=== PATIENT | female | born 1940 | race African-American/Black ===

== ENCOUNTER 2018-10-08 12:30 | Inpatient (IN) ==
--- NOTE | 2018-10-08 17:34 | EKG Report ---
Test Performed on : 10/08/2018 5:11:29 PM Test Reason : PAT Blood Pressure : / mmHG Vent. Rate : 058 BPM Atrial Rate : 058 BPM P-R Int : 158 ms QRS Dur : 104 ms QT Int : 448 ms P-R-T Axes : 062 -09 042 degrees QTc Int : 439 ms Sinus bradycardia. with premature atrial complexes. Moderate voltage criteria for LVH, may be normal variant Borderline ECG When compared with ECG of 03-OCT-2018 06:30, (Unconfirmed) Sinus rhythm. has replaced Atrial fibrillation. Vent. rate has decreased BY 58 BPM Confirmed by Minesh TERRAZAS, Jaylen Weir ([id number]) on 10/10/2018 10:53:06 AM
[2018-10-08 17:53] LABS: URINE SOURCE CLEAN CATCH
[2018-10-08 17:57] LABS: BASO# 0.04 X1000 (0.0-0.2); BASO% 0.8 % (0.0-0.8); EOS# 0.15 X1000 (0.0-0.7); EOS% 2.9 % (0.0-10.0); HEMATOCRIT 30.2 % (37.0-47.0); HEMOGLOBIN 9.7 g/dL (12.0-16.0); LYMPH# 1.55 X1000 (1.2-3.4); LYMPH% 29.6 % (20.5-51.1); MCH 27.1 PG (27-31); MCHC 32.1 g/dL (33-37); MCV 84.4 FL (81-99); MONO# 0.42 X1000 (0.11-0.59); NEUT# 3.08 X1000 (1.4-6.5); NEUT% 58.7 % (42.2-75.2); PLT 252 X1000 (130-400); RBC 3.58 XMIL (4.2-5.4); WBC 5.24 X1000 (4.8-10.8)
[2018-10-08 18:04] LABS: BILIRUBIN URINE NEGATIVE (NEGATIVE); BLOOD URINE NEGATIVE (NEGATIVE); COLOR YELLOW; GLUCOSE URINE NEGATIVE (NEGATIVE); KETONE URINE NEGATIVE (NEGATIVE); LEUKOCYTES URINE LARGE (NEGATIVE); NITRITE URINE NEGATIVE (NEGATIVE); PROTEIN URINE NEGATIVE (NEGATIVE); SP GRAVITY URINE 1.009; TURBIDITY URINE CLEAR (CLEAR); UROBILINOGEN URINE NORMAL (NORMAL)
[2018-10-08 18:05] LABS: UR EPITHELIAL CELLS <10 /HPF (<10); URINE BACTERIA NEGATIVE /HPF; URINE RBC <10 /HPF (<10); URINE WBC 20-40 /HPF (<10)
[2018-10-08 18:06] LABS: INR 1.04; PROTIME 14.5 Seconds (11.0-16.0)
[2018-10-08 18:07] LABS: PTT 29.3 Seconds (22.3-41.8)
[2018-10-08 18:14] LABS: CALCIUM 9.3 mg/dL (8.8-10.2); CREATININE 1.4 mg/dL (0.5-0.9); POTASSIUM 3.4 mmol/L (3.5-5.1)
[2018-10-15] MEDS ORDERED: PEPCID ONE (08:39)
[2018-10-15] MEDS ORDERED: REGLAN ONE (08:39)
[2018-10-15] MEDS ORDERED: LYRICA ONE (08:39)
[2018-10-15] MEDS ORDERED: LR 1,000 ML ONE (08:40)
[2018-10-15] MEDS ORDERED: COLACE ONE (08:40)
[2018-10-15] MEDS ORDERED: CELEBREX ONE (08:40)
[2018-10-15] MEDS ORDERED: KEFZOL 1 GM/D5W 2 GM/100 ML IVPB ONE (08:41)
[2018-10-15] MEDS ORDERED: DIPRIVAN 1% ONE (08:51)
[2018-10-15] MEDS ORDERED: FENTANYL ONE (08:52)
[2018-10-15] MEDS ORDERED: SODIUM CHLORIDE 0.9% 10 ML ONE (08:54)
[2018-10-15] MEDS ORDERED: NORCURON ONE (08:54)
[2018-10-15] MEDS ORDERED: QUELICIN (DOSE) ONE (08:54)
[2018-10-15] MEDS ORDERED: ROBINUL ONE ×2 (09:14→13:17)
[2018-10-15] MEDS ORDERED: VALIUM ONE (09:26)
[2018-10-15] MEDS ORDERED: MARCAINE 0.25% PF ONE (10:15)
[2018-10-15] MEDS ORDERED: DURAMORPH ONE (10:15)
[2018-10-15] MEDS ORDERED: TORADOL ONE (10:15)
[2018-10-15] MEDS ORDERED: VANCOMYCIN ONE (10:16)
[2018-10-15] MEDS ORDERED: CYKLOKAPRON 1,000 MG/NS 1,000 MG/100 ML IVPB ONE (10:16)
[2018-10-15] MEDS ORDERED: NEOSPORIN G.U. IRRIGANT ONE (10:16)
[2018-10-15] MEDS ORDERED: EXPAREL 1.3% ONE (10:16)
[2018-10-15] MEDS ORDERED: SODIUM CHLORIDE 0.9% ONE (10:16)
[2018-10-15 11:39] LABS: URINE SOURCE CATH
[2018-10-15 11:44] LABS: BILIRUBIN URINE NEGATIVE (NEGATIVE); BLOOD URINE NEGATIVE (NEGATIVE); COLOR YELLOW; GLUCOSE URINE NEGATIVE (NEGATIVE); KETONE URINE NEGATIVE (NEGATIVE); LEUKOCYTES URINE NEGATIVE (NEGATIVE); NITRITE URINE NEGATIVE (NEGATIVE); PH URINE 6.5; PROTEIN URINE NEGATIVE (NEGATIVE); SP GRAVITY URINE 1.003; TURBIDITY URINE CLEAR (CLEAR); UROBILINOGEN URINE NORMAL (NORMAL)
[2018-10-15 11:46] LABS: UR EPITHELIAL CELLS <10 /HPF (<10); URINE BACTERIA NEGATIVE /HPF; URINE RBC <10 /HPF (<10); URINE WBC <10 /HPF (<10)
[2018-10-15] MEDS ORDERED: DECADRON ONE (11:54)
[2018-10-15] MEDS ORDERED: OFIRMEV 1000 MG/ISOTONIC SOLN 1,000 MG/100 ML BOTTLE ONE (11:54)
[2018-10-15] MEDS ORDERED: ZOFRAN ONE (11:54)
[2018-10-15] MEDS ORDERED: NEOSTIGMINE ONE (13:17)
[2018-10-15] MEDS ORDERED: EPHEDRINE ONE (13:30)
[2018-10-15] MEDS ORDERED: NS 1,000 ML ONE (14:22)
[2018-10-15] MEDS ORDERED: ZOFRAN PO PRN (14:45)
[2018-10-15] MEDS ORDERED: MORPHINE IV PRN ×3 (14:45)
[2018-10-15] MEDS: NS 1,000 ML IV SCH (14:50)
--- NOTE | 2018-10-15 14:52 | Diag Imaging Result Doc PS360 ---
KNEE 1-2 VIEWS-RIGHT - 10/15/2018 INDICATION: post op total knee TECHNIQUE: Three views COMPARISON: 07/13/2010 FINDINGS: There has been revision, with a new longstem hinged knee prosthesis. Alignment is anatomic. No hardware fracture or loosening. IMPRESSION: No complication. Electronically signed by Dre Vogt 10/15/2018 2:50 PM
[2018-10-15] MEDS: OXY IR PO PRN (15:16)
[2018-10-15] MEDS ORDERED: ULTRAM PO PRN (18:51)
[2018-10-15] MEDS: KEFZOL 2 GM/D5W 2 GM/50 ML IVPB IV SCH (18:57)
[2018-10-15] MEDS: PRAVACHOL PO SCH (20:27)
[2018-10-15] MEDS: PERIDEX MT SCH (20:27)
[2018-10-15] MEDS: NORVASC PO SCH (20:27)
[2018-10-15] MEDS: RYTHMOL PO SCH (20:28)
[2018-10-15] MEDS: TRAVATAN 0.004% OPH SOLN RIGHT EYE SCH (20:41)
--- NOTE | 2018-10-15 21:54 | OPERATIVE NOTE ---
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 POSTOPERATIVE DIAGNOSIS: Failed right total knee arthroplasty. PROCEDURE: Revision right total knee arthroplasty with DePuy Sigma size 3 femoral component, with a size 40 mm femoral sleeve, 75 x 14 universal fluted stem, a size 15 mm revision thick tibial tray, with a size 29 mm metaphyseal sleeve and a 20 mm rotating platform tibial insert. SURGEON: Franco Maciel MD TREE TRIMMING SUPERVISOR: AMY Zhang SECOND CHIEF RECORDIST: Favian Michaels RN ANESTHESIA: General. INTRAVENOUS FLUIDS: Lactated Ringer 2000 mL ESTIMATED BLOOD LOSS: 75 mL TOURNIQUET TIME: 123 minutes at 350 mmHg. COMPLICATIONS: None. INDICATION: The patient is a 78-year-old female who is status post right total knee arthroplasty by Dr. Jiang in 2010. Over the last couple of years the patient has had some increasing discomfort in her right knee. X-rays reveal gross loosening of the tibial component. Given the patient's findings, recommendation is to proceed with revision right total knee arthroplasty. Risks and benefits of surgery were explained, including the risks of anesthesia, , bleeding, infection, failure to relieve pain, postoperative stiffness, nerve injury, blood clots and other imponderables. All questions were answered. The patient and family wish to proceed with surgery. DETAILS OF OPERATION: The patient was taken to the operating room and placed supine on the operating table. Once adequate anesthesia was obtained, the patient's right lower extremity was subsequently prepped and draped in the usual sterile fashion. A standard anterior incision was made through the previous surgical incision. Medial and lateral skin envelopes were developed. Standard medial parapatellar arthrotomy was then performed. Intraoperative cultures were obtained. Retractors were then placed. After this had been performed, the osteotome was used around the periphery of the femoral component and it was easily removed. Prior to this, on the tibial component an osteotome was used on the undersurface to remove the peg and remove the polyethylene. After this had been performed, attention was then turned to the tibial tray and it had gross loosening. A small osteotome was used to elevate the tibial component without difficulty. Again, it had gross loosening and was easily removed. After this had been performed, a small osteotome was used to remove some of the cement. Reaming was then conducted up to a size 14 on both tibial and femoral shafts. A starting reamer was then used to ream the proximal portion of the tibia. After this had been performed, broaching was then conducted up to a size 29 metaphyseal sleeve. A 2.5 tibial tray with metaphyseal sleeve and fluted stem was then placed in position. Attention was then turned to the proximal tibia, where sequential broaching was conducted up to size 40. It appeared a good fit. A distal femoral cutting block was pinned in position. Distal femoral cut was then performed. After this had been performed, the chamfer cutting block was placed in position. The spacer block was placed to stabilize the knee at 90 degrees of flexion to set the rotation. The pins were placed. After this had been performed, anterior, posterior and chamfer cuts were then made. Augmentation was required on the lateral distal femur 4 mm as well as the posteromedial aspect, again 4 mm. The trial femoral construct was then placed and the knee was carried through range of motion. It had good range of motion and good soft tissue balancing with the trial thick tray, and the 15 mm was in position. It had some mild laxity in full extension. The trial components were removed. Copious irrigation was then performed with antibiotic pulsatile lavage while the femoral and metaphyseal constructs were assembled on the back table. Vancomycin was mixed with the cement on the back table as well. Sequential cementing was then performed, first along the proximal tibia, and the metaphyseal construct was then impacted into position. Excess cement was removed with a [place]. The femoral construct was then placed in standard fashion. It was then impacted into position and had good fit. Excess cement was removed with the [place]. A trial tibial insert was then placed in full extension. Axial loading was maintained while the cement cured with the trial insert. After the cement had cured, peripheral cement was removed with a small osteotome. A 20 mm rotating platform tibial insert appeared to be the correct size. This trial insert was removed. Exparel was placed in the deep soft tissue. Exparel had been placed in the deep soft tissue as well as the subcutaneous tissue while the cement was curing. Copious irrigation was performed with antibiotic pulsatile lavage. A 20 mm rotating platform tibial insert was then placed. The knee was carried through range of motion, with good range of motion and good soft tissue balancing. A 1/8-inch Hemovac drain was placed. It was not sewn in. Copious irrigation was performed once again with antibiotic pulsatile lavage. Number 1 Vicryl was used to repair the arthrotomy, followed by 2-0 Vicryl to repair subcutaneous tissue, and skin rock. Adaptic, sterile 4 x 4's, Webril, cryotherapy unit and Chauncey wrap were applied to the right lower extremity. The patient tolerated the procedure well and was transferred to the recovery room in stable condition. cc: Franco Maciel MD
[2018-10-16] MEDS: KEFZOL 2 GM/D5W 2 GM/50 ML IVPB IV SCH (02:25)
[2018-10-16 05:37] LABS: HEMATOCRIT 25.8 % (37.0-47.0)
[2018-10-16 05:55] LABS: CALCIUM 7.1 mg/dL (8.8-10.2); CREATININE 1.7 mg/dL (0.5-0.9); POTASSIUM 3.7 mmol/L (3.5-5.1)
--- NOTE | 2018-10-16 09:29 | ORTHOPAEDICS PROGRESS NOTE ---
DATE: 10/16/2018 SUBJECTIVE: The patient is a pleasant, 78-year-old female, who is 1 day status post revision right total knee arthroplasty. She is currently resting comfortably this morning. OBJECTIVE: On physical exam, the patient's dressing is intact. Her calf is soft. She has active dorsiflexion and plantar flexion. She is neurovascularly distally. LABORATORY DATA: Hemoglobin is 8.0, hematocrit is 25.8. IMPRESSION: Postoperative day #1, status post revision right total knee arthroplasty. PLAN: At this point, discussed treatment options with the patient. At this time, the patient will begin mobilization with Physical Therapy. Weight bear as tolerated on the right lower extremity. Will consult Water Resources Project Manager for discharge planning for inpatient rehabilitation. cc: Franco Maciel MD
[2018-10-16] MEDS: PERIDEX MT SCH ×2 (10:33→21:57)
[2018-10-16] MEDS: ALPHAGAN P 0.1% OPHTH SOLN RIGHT EYE SCH (10:33)
[2018-10-16] MEDS: TOPROL XL PO SCH (10:34)
[2018-10-16] MEDS: RYTHMOL PO SCH ×2 (10:35→21:58)
[2018-10-16] MEDS: HYZAAR 50/12.5 MG PO SCH (10:35)
[2018-10-16] MEDS: LEXAPRO PO SCH (10:35)
[2018-10-16] MEDS: ASPIRIN PO SCH (10:35)
[2018-10-16] MEDS: OXY IR PO PRN (10:43)
[2018-10-16] MEDS: TYLENOL PO PRN (13:09)
[2018-10-16] MEDS: NS 1,000 ML IV SCH (17:55)
[2018-10-16] MEDS: NORVASC PO SCH (21:58)
[2018-10-16] MEDS: PRAVACHOL PO SCH (21:58)
[2018-10-16] MEDS: TRAVATAN 0.004% OPH SOLN RIGHT EYE SCH (22:03)
[2018-10-17] MEDS: TYLENOL PO PRN ×2 (01:58→20:37)
[2018-10-17 06:12] LABS: HEMATOCRIT 24.1 % (37.0-47.0); HEMOGLOBIN 7.5 g/dL (12.0-16.0)
[2018-10-17 06:33] LABS: CALCIUM 7.8 mg/dL (8.8-10.2); CREATININE 1.5 mg/dL (0.5-0.9); POTASSIUM 3.4 mmol/L (3.5-5.1)
[2018-10-17] MEDS: NS 1,000 ML IV SCH ×2 (07:40→20:41)
[2018-10-17] MEDS: OXY IR PO PRN ×4 (07:41→20:38)
[2018-10-17] MEDS: ALPHAGAN P 0.1% OPHTH SOLN RIGHT EYE SCH (09:20)
[2018-10-17] MEDS: ASPIRIN PO SCH (09:21)
[2018-10-17] MEDS: LEXAPRO PO SCH (09:22)
[2018-10-17] MEDS: PERIDEX MT SCH ×2 (09:22→20:37)
[2018-10-17] MEDS: TOPROL XL PO SCH (09:22)
[2018-10-17] MEDS: HYZAAR 50/12.5 MG PO SCH (09:22)
[2018-10-17] MEDS: RYTHMOL PO SCH ×2 (09:22→20:37)
--- NOTE | 2018-10-17 11:42 | ORTHOPAEDICS PROGRESS NOTE ---
DATE: 10/17/2018 SUBJECTIVE: The patient is a pleasant 78-year-old female who is 2 days status post revision right total knee arthroplasty. The patient is still continuing with discomfort in her knee. She was very slow to mobilize in physical therapy yesterday. PHYSICAL EXAMINATION: Extremities: The patient's right lower extremity, her wound looks good. There are no signs or symptoms of infection. Her calf is soft. She has active dorsiflexion and plantar flexion. She is able to perform a straight leg raise. LABORATORY DATA: Hemoglobin 7.5 hematocrit 24.1. IMPRESSION: Postoperative day #2, status post revision right total knee arthroplasty. PLAN: At this point, will continue mobilization with physical therapy. The patient is wishing to be discharged home and will plan on discharging home with home physical therapy once she is mobilizing. Her mobilization is improved. cc: Franco Maciel MD
[2018-10-17] MEDS: PRAVACHOL PO SCH (20:37)
[2018-10-17] MEDS: TRAVATAN 0.004% OPH SOLN RIGHT EYE SCH (20:37)
[2018-10-17] MEDS: NORVASC PO SCH (20:38)
[2018-10-18] MEDS: OXY IR PO PRN ×5 (06:24→18:48)
[2018-10-18 07:06] LABS: HEMATOCRIT 23.7 % (37.0-47.0); HEMOGLOBIN 7.5 g/dL (12.0-16.0)
[2018-10-18] MEDS: HYZAAR 50/12.5 MG PO SCH (10:27)
[2018-10-18] MEDS: ASPIRIN PO SCH (10:29)
[2018-10-18] MEDS: PERIDEX MT SCH ×2 (10:29→21:01)
[2018-10-18] MEDS: LEXAPRO PO SCH (10:30)
[2018-10-18] MEDS: TOPROL XL PO SCH (10:30)
[2018-10-18] MEDS: RYTHMOL PO SCH ×2 (10:30→21:00)
[2018-10-18] MEDS: ALPHAGAN P 0.1% OPHTH SOLN RIGHT EYE SCH (10:36)
[2018-10-18] MEDS: TYLENOL PO PRN (14:40)
--- NOTE | 2018-10-18 19:33 | ORTHOPAEDICS PROGRESS NOTE ---
DATE: 10/18/2018 Ms. Nixon is seen today status post total knee replacement. She is afebrile with stable vital signs. She is still mobilizing poorly. She has not yet mobilized out of her room. Her knee is clean and dry. Hematocrit is 23.7, slightly down from yesterday, but otherwise she is relatively well. We will continue to mobilize her and consider discharge home if she is doing well tomorrow. There is no signs of infection or DVT. cc: MD Franco Lamas MD
[2018-10-18] MEDS: TRAVATAN 0.004% OPH SOLN RIGHT EYE SCH (20:59)
[2018-10-18] MEDS: NORVASC PO SCH (21:00)
[2018-10-18] MEDS: PRAVACHOL PO SCH (21:00)
[2018-10-19 07:24] VITALS: BP 138/63
[2018-10-19] MEDS: PERIDEX MT SCH (10:24)
[2018-10-19] MEDS: LEXAPRO PO SCH (10:25)
[2018-10-19] MEDS: HYZAAR 50/12.5 MG PO SCH (10:25)
[2018-10-19] MEDS: TOPROL XL PO SCH (10:25)
[2018-10-19] MEDS: RYTHMOL PO SCH (10:25)
[2018-10-19] MEDS: ASPIRIN PO SCH (10:25)
[2018-10-19] MEDS: ALPHAGAN P 0.1% OPHTH SOLN RIGHT EYE SCH (10:25)
[2018-10-19] MEDS: OXY IR PO PRN (12:08)
--- NOTE | 2018-10-19 14:55 | ORTHOPAEDICS PROGRESS NOTE ---
DATE: 10/19/2018 Ms. Nixon is seen today status post total knee replacement. The present time she is afebrile with vital signs stable. Her incision is clean and dry. She has mobilized better today. She is independent with transfers. She can be discharged home today for outpatient followup. She will follow up with Dr. Maciel in roughly 10 days. She will continue with her home medicines. She will also take aspirin 325 a day for DVT prophylaxis. She has home therapy ordered. We will see her back for any worsening signs or symptoms. cc: MD Franco Lamas MD
--- NOTE | 2018-10-22 08:08 | DISCHARGE SUMMARY ---
ADMISSION DATE: 10/15/2018 DISCHARGE DATE: 10/19/2018 ADMITTING DIAGNOSIS: Failed right total knee arthroplasty. DISCHARGE DIAGNOSIS: Failed right total knee arthroplasty, status post revision right total knee arthroplasty. BRIEF HISTORY: The patient is a pleasant 78-year-old female who is status post right total [place] [address] Maldonado. Over the last couple of years, patient has had some increasing pain and discomfort. X-rays revealed gross loosening of the tibial component and recommendation to proceed with revision right total knee arthroplasty was offered. Risks and benefits of surgery were explained, and all questions were answered. The patient and family wished to proceed with surgery. HOSPITAL COURSE AND TREATMENT: Patient was admitted to the hospital, and underwent revision right total knee arthroplasty. She tolerated the procedure well. Patient was slow to progress with physical therapy postoperatively. By postoperative day #3, her hemoglobin and hematocrit had stabilized to 7.5 and 23.7. Her vital signs were stable. By postoperative day #4, patient had improved with mobilization with physical therapy. Prior to discharge, the patient is afebrile tolerating a regular diet. The pain was well controlled on p.o. medication, and her wound looked good. There are no signs or symptoms of infection. DISCHARGE MEDICATIONS: OxyIR 5 mg 1 p.o. q.4-6 hours p.r.n. pain. For the remaining medications, please see medication list. DISCHARGE INSTRUCTIONS: Patient discharged home, and will receive home physical therapy. She will be weightbearing as tolerated right lower extremity. She will follow up in the office in 8 to 10 days. cc: Franco Maciel MD
== END 2018-10-19 12:11 | disposition home health service (06) | DRG 467 ==
LOC: SURHOLD 10-15 01:30 → 4N 10-15 11:07 → UNDODISIN 10-19 11:50
PROVIDERS: ADMIT Orthopaedic Surgery Adult Reconstructive Orthopaedic Surgery; ATTEND Orthopaedic Surgery Adult Reconstructive Orthopaedic Surgery
CPT/HCPCS: 73560; 76000; 78452; 80048; 81001; 85014; 85018; 85025; 85610; 85730; 86850; 86900; 86901; 87070; 87075; 87205; 93005; 93010; 93017; 94760; 94761; 94799; 97110; 97116; 97163; 97530; A9270; A9500; C9290; J0131; J0330; J0690; J1100; J1885; J2274; J2275; J2405; J2785; J3010; J3370; J7030; J7120; Q9974; S0020

== ENCOUNTER 2019-04-13 09:11 | Inpatient (IN) ==
[2019-04-13] MEDS ORDERED: NS 1,000 ML IV ONE (10:13)
[2019-04-13 10:26] LABS: BASO# 0.02 X1000 (0.0-0.2); BASO% 0.3 % (0.0-0.8); EOS# 0.03 X1000 (0.0-0.7); EOS% 0.4 % (0.0-10.0); HEMATOCRIT 28.6 % (37.0-47.0); HEMOGLOBIN 8.7 g/dL (12.0-16.0); IMM GRAN# 0.02 X1000 (0.0-0.04); IMM GRAN% 0.3 % (0.0-0.5); LYMPH# 1.02 X1000 (1.2-3.4); LYMPH% 13.2 % (20.5-51.1); MCH 26.2 PG (27-31); MCHC 30.4 g/dL (33-37); MCV 86.1 FL (81-99); MONO# 0.85 X1000 (0.11-0.59); MPV 11.9 FL (7.4-10.4); NEUT# 5.78 X1000 (1.4-6.5); NEUT% 74.8 % (42.2-75.2); PLT 275 X1000 (130-400); RBC 3.32 XMIL (4.2-5.4); RDW 13.7 % (11.5-14.5); WBC 7.72 X1000 (4.8-10.8)
[2019-04-13 10:40] LABS: ALBUMIN 4.1 g/dL (3.5-5.0); CALCIUM 9.4 mg/dL (8.8-10.2); CREATININE 1.7 mg/dL (0.5-0.9); POTASSIUM 4.3 mmol/L (3.5-5.1); TOTAL BILIRUBIN 0.3 mg/dL (0.20-1.00); TOTAL PROTEIN 7.7 g/dL (6.3-8.3)
[2019-04-13 10:43] LABS: IRON SATURATION 8 %; TIBC 235 ug/dL; TOTAL IRON 19 ug/dL (49-151); UNBOUND IRON 216 ug/dL (112-346)
--- NOTE | 2019-04-13 11:02 | EKG Report ---
Test Performed on : 04/13/2019 09:40:51 AM Test Reason : tachycardic hx a fib Blood Pressure : / mmHG Vent. Rate : 142 BPM Atrial Rate : 108 BPM P-R Int : 000 ms QRS Dur : 090 ms QT Int : 316 ms P-R-T Axes : 000 -37 081 degrees QTc Int : 486 ms Atrial fibrillation. with rapid ventricular response. Left axis deviation Abnormal ECG When compared with ECG of 08-OCT-2018 17:11, Atrial fibrillation. has replaced Sinus rhythm. Vent. rate has increased BY 84 BPM Unconfirmed Result
[2019-04-13 11:34] LABS: BILIRUBIN URINE NEGATIVE (NEGATIVE); BLOOD URINE NEGATIVE (NEGATIVE); CLARITY CLEAR (CLEAR); COLOR YELLOW; GLUCOSE URINE NEGATIVE (NEGATIVE); KETONE URINE TRACE mg/dL (NEGATIVE); LEUKOCYTES URINE 1+ (NEGATIVE); NITRITE URINE NEGATIVE (NEGATIVE); PH URINE 6.5; PROTEIN URINE TRACE mg/dL (NEGATIVE); URINE BACTERIA NEGATIVE /HFP; URINE CAST NONE SEEN /LPF; URINE CRYSTAL NONE SEEN /HPF; URINE EPITHELIAL CELLS <10 /HPF (<10); URINE RBC <10 /HPF (<10); URINE SOURCE CLEAN CATCH; URINE WBC 20-40 /HPF (<10); URINE YEAST NONE SEEN /HPF; UROBILINOGEN URINE NORMAL
[2019-04-13] MEDS ORDERED: VANCOCIN PO ONE (12:07)
[2019-04-13] MEDS ORDERED: CARDIZEM IV ONE (12:08)
[2019-04-13] MEDS ORDERED: RYTHMOL PO ONE (12:38)
[2019-04-13] MEDS ORDERED: TOPROL XL PO ONE (12:38)
[2019-04-13] MEDS ORDERED: AMBIEN PO PRN ×3 (12:50→13:42)
[2019-04-13] MEDS ORDERED: TYLENOL PO PRN ×4 (12:50→13:41)
[2019-04-13] MEDS ORDERED: ZOFRAN IV PRN ×4 (12:50→13:41)
[2019-04-13] MEDS: VANCOCIN PO SCH ×3 (13:00→21:03)
[2019-04-13] MEDS ORDERED: CARDIZEM 125 MG/D5W 125 MG/125 ML IVPB IV SCH ×2 (13:00→13:45)
[2019-04-13] MEDS ORDERED: NS 1,000 ML IV SCH (13:00)
[2019-04-13] MEDS ORDERED: PRILOSEC PO SCH (13:00)
[2019-04-13 13:07] LABS: INR 1.05; PROTIME 14.2 Seconds (11.0-16.0)
[2019-04-13 13:08] LABS: PTT 30.1 Seconds (22.3-41.8)
[2019-04-13] MEDS: NS 1,000 ML IV SCH (14:00)
--- NOTE | 2019-04-13 14:44 | EKG Report ---
Test Performed on : 04/13/2019 2:42:59 PM Test Reason : repeat Blood Pressure : / mmHG Vent. Rate : 058 BPM Atrial Rate : 058 BPM P-R Int : 156 ms QRS Dur : 098 ms QT Int : 436 ms P-R-T Axes : -07 -26 005 degrees QTc Int : 428 ms Sinus bradycardia. with marked sinus arrhythmia. Otherwise normal ECG When compared with ECG of 13-APR-2019 09:40, (Unconfirmed) Sinus rhythm. has replaced Atrial fibrillation. Vent. rate has decreased BY 84 BPM T wave inversion now evident in Inferior leads T wave amplitude has decreased in Anterior leads Unconfirmed Result
--- NOTE | 2019-04-13 15:03 | PROVIDER DOCUMENTATION ---
This chart was entered by Marni Garcia Scribe, acting as scribe for Ijeoma Quigley MD. HPI-General Adult - General Chief Complaint: N/V/D Stated Complaint: VOMITING X2 Time Seen by Provider: 04/13/19 09:39 Source: patient Allergies/Adverse Reactions: Patient Allergies Allergy/AdvReac Type Severity Reaction Status Date / Time rivaroxaban [From Xarelto] AdvReac Unknown Verified 10/07/18 12:38 Home Medications: Home Medication List Medication Instructions Recorded Confirmed Last Taken Type Aspirin 81 mg PO QHS 03/25/14 04/13/19 10/08/18 21:00 History Brimonidine 0.1% Ophth Soln 2 drop RIGHT EYE QAM 03/25/14 04/13/19 04/12/19 History [Alphagan P 0.1% Ophth Soln] Metoprolol Succinate [Toprol Xl] 50 mg PO QAM 03/25/14 04/13/19 04/12/19 History Pravastatin Sodium [Pravachol] 20 mg PO HS 03/25/14 04/13/19 04/12/19 History Tramadol HCl 50 mg PO TID PRN PRN 03/25/14 04/13/19 04/12/19 History Travoprost 0.004% Oph Soln 1 drop RIGHT EYE HS 03/25/14 04/13/19 04/12/19 History [Travatan 0.004% Oph Soln] Losartan/Hydrochlorothiazide 25 - 100 mg PO QAM 10/01/18 04/13/19 04/12/19 History [Hyzaar 100-25 Tablet] Cholecalciferol (Vitamin D3) 1 cap PO QAM 10/02/18 04/13/19 04/12/19 History [Vitamin D3] Escitalopram Oxalate [Lexapro] 10 mg PO QAM 10/02/18 04/13/19 04/12/19 History Methocarbamol [Robaxin-750] 750 mg PO TID PRN 10/02/18 04/13/19 04/12/19 History Propafenone [Rythmol] 150 mg PO BID 10/02/18 04/13/19 04/12/19 History Amlodipine Besylate 1 dose PO DAILY 04/13/19 04/13/19 04/12/19 History - History of Present Illness -Gen Adult Nature of Presenting Problems: Patient is a 78 year old female who presents with nausea, vomiting and diarrhea. States symptoms started 2 days ago. Denies abdominal pain. Reports seeing PCP prior to arrival in the ED. Quality of Pain: reports: none Severity: reports: mild Onset/Duration: reports: 2 days ago Timing: reports: still present Context/Activities at Onset: reports: light activity Associated Symptoms: reports: diarrhea, nausea, vomiting Similar Symptoms Previously?: Yes Recently seen or treated by another doctor?: Yes Review of Systems - Adult - REVIEW OF SYSTEMS - ADULT Constitutional: reports: no symptoms reported. denies: chills, fever, fatique Eyes: reports: no symptoms reported Ears, Nose, Mouth & Throat: reports: no symptoms reported Cardiovascular: reports: no symptoms reported Respiratory: reports: no symptoms reported Gastrointestinal: reports: see HPI, diarrhea, nausea, vomiting. denies: abdominal pain Genitourinary: reports: no symptoms reported Musculoskeletal: reports: no symptoms reported Integumentary: reports: no symptoms reported Neurological: reports: no symptoms reported Psychiatric: reports: no symptoms reported Endocrine: reports: no symptoms reported Hematologic/Lymphatic: reports: no symptoms reported Allergic/Immunologic: reports: no symptoms reported All Other Systems: Reviewed and Negative Past History - Adult - PAST MEDICAL HISTORY-ADULT Review of Records: reports: Old Records Reviewed, Nursing Assessment Review, Medications Reviewed, Social history reviewed & non-contributory. Major Childhood Illnesses: reports: denies history Cardiovascular: reports: A-Fib, CAD, HTN, hyperlipidemia Respiratory: reports: sleep apnea Gastrointestinal: reports: denies history Obstetrical/Gynecological: reports: denies history Genitourinary: reports: denies history Musculoskeletal: reports: denies history Neurological: reports: denies history Endocrine/Immune: reports: anemia, thyroid disorder Other Conditions: reports: denies history - PRIOR SURGERIES/PROCEDURES Surgical/Procedure History: reports: hysterectomy, tonsillectomy, orthopedic (extremity), joint replacement (TKR), other (lithrotripsy) - PRIOR HOSPITALIZATIONS Prior Hospitalizations: reports: for other non-related - IMMUNIZATION STATUS Childhood Immunizations: See Nurse Assessment Flu Vaccine: See Nurse Assessment - FAMILY HISTORY Family History: reviewed, not pertinent - SOCIAL HISTORY Smoking: denies Substance Use: denies Living Situation: alone Physical Exam-General - PHYSICAL EXAM-ADULT Initial Vital Signs Reviewed: Yes - CONSTITUTIONAL General Appearance: alert, mild distress, anxious. negative: lethargic - HEAD, EARS, NOSE, MOUTH & THROAT HENMT: normocephalic/atraumatic, moist mucous membranes. negative: angioedema - RESPIRATORY Respiratory: chest non-tender, lungs clear, normal breath sounds. negative: crackles, rhonchi - CARDIOVASCULAR Cardiovascular: normal peripheral pulses, tachycardia. negative: systolic murmur - GASTROINTESTINAL (ABDOMEN) Abdominal Exam: normal bowel sounds, non tender, soft. negative: distended, rigid - MUSCULOSKELETAL Extremity: normal inspection. negative: erythema, pedal edema - SKIN Integumentary: normal color, normal turgor, warm/dry. negative: diaphoresis, pallor - NEUROLOGIC Neurologic: grossly normal. negative: aphasia, facial droop - PSYCHIATRIC Psych/Mental Status: oriented x 3, anxious. negative: paranoid Progress - PLAN OF CARE/RESULTS Progress/Plan/Lab Results: Vital Signs - 8 hr 04/13/19 09:20 Pulse Rate 136 H Respiratory Rate 20 Blood Pressure 170/90 O2 Sat by Pulse Oximetry 100 Orders Category Date Time Status Cardiac Monitoring DIRECTED Care 04/13/19 09:30 Active Nursing- Obtain EKG ONCE Care 04/13/19 09:30 Active AMYLASE [CHEM] Stat Lab 04/13/19 09:30 Ordered CBC WITH DIFF [HEME] Stat Lab 04/13/19 09:30 Ordered COMPREHENSIVE METABOLIC PANEL [CHEM] Stat Lab 04/13/19 09:50 Ordered LIPASE [CHEM] Stat Lab 04/13/19 09:[address] W/POSS RFLX CULT [URINALYSIS] Stat Lab 04/13/19 09:30 Uncollected EKG [EKG] Stat Ther 04/13/19 09:30 Ordered Result Diagrams: 04/13/19 09:54 04/13/19 09:54 - EKG 1 Time of EKG reading by physician:: 09:40 EKG Read and Signed by:: Ijeoma Quigley EKG Interpretation (*Must complete 3 of following elements*): Abnormal Rate: 142 Rhythm: atrial fibrillation with rapid ventricular response [place]: left Comments: abnormal ECG 2 Time of EKG reading by physician:: 14:42 EKG Read and Signed by:: Ijeoma Quigley EKG Interpretation (*Must complete 3 of following elements*): Abnormal Rate: 58 Rhythm: sinus bradycardia with marked sinus arrhythmia [place]: normal [place] Interval: normal Comments: otherwise normal ECG - CONSULTS/PCP/HOSPITALIST Notification #1 *Consult/PCP/Hospitalist*: Dr. Krishnan Time Discussed: 12:32 Reason/Comments: Dr. Quigley consulted with Dr. Krishnan about patient. Consult Disposition: Will see in ED Departure - Departure Date of Disposition Decision: 04/13/19 Time of Disposition Decision: 12:32 DIAGNOSIS: C. difficile diarrhea, Atrial fibrillation with RVR Disposition: ADMITTED INPATIENT 09 Certified Medical Emergency: Emergent Condition: Serious - Critical Care Note This patient required my direct & personal management of CC.: No Attestation - Physician/ ANALI Attestation Patient care was provided by Advanced Practice Provider:: No The physician spent face to face time with patient:: Yes Advanced Practice Provider documentation review:: Supervising physician onsite and consulted in the evaluation and care of this patient. The physician did have a face to face encounter with the patient. This chart was documented by the indicated scribe, (Marni Garcia Scribe) and accurately reflects the services I performed and decisions made by me, Ijeoma Quigley MD, as attested by the provider's signature.
--- NOTE | 2019-04-13 15:14 | HISTORY AND PHYSICAL ---
PRIMARY CARE PROVIDER: Dr. Stephy Brown. EDITOR: Dr. Torres. [employer] SUPERVISOR: Dr. Blackburn. CHIEF COMPLAINT: Diarrhea and abdominal cramps. HISTORY OF PRESENT ILLNESS: Ms. La Nena Nixon is a 78-year-old female with a medical history of GERD, GI bleed with iron-deficiency anemia and history of transfusions, also a history of paroxysmal atrial fibrillation, only on aspirin because of the history of GI bleeding. States that she most recently had a colonoscopy and EGD, which she had a diagnosis of Helicobacter pylori, received 2 rounds of antibiotics, along with Diflucan, and then she also most recently had a tooth extraction, where she had to have antibiotics as well, with the last round of antibiotics being in late February. Apparently on Saturday, she had one spell of emesis, which she stated was because she took Ultram on an empty stomach, but also started having persistent gelatinous, orange diarrhea, along with abdominal cramps and pain. She went to her primary care provider this morning, who noted that she had atrial fibrillation with RVR, was dehydrated, and sent her to the emergency department here at [facility]. A stool sample was sent that was positive for Clostridium difficile. She has already received oral vancomycin. She was also found to have atrial fibrillation with RVR, and started on Cardizem drip. She will be transferred to [facility]. Currently, vital signs are stable. PAST MEDICAL HISTORY: 1. GERD. 2. GI bleed with four blood transfusions in the past. 3. Rectocele. 4. Paroxysmal atrial fibrillation, only on aspirin due to history of GI bleeding. 5. 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 6. Peripheral vision is off. 7. Hyperlipidemia. 8. Depression. 9. Kidney stones. 10. Hypothyroidism. 11. Iron-deficiency anemia. 12. TIA in 09/2018. 13. Seasonal allergies. 14. Hypertension. 15. Diastolic dysfunction on an echocardiogram in September. 16. Helicobacter pylori with two rounds of antibiotics and Diflucan. PAST SURGICAL HISTORY: 1. Most recently, colonoscopy and EGD. 2. Tooth extraction. 3. Left eye stye removed. 4. Right knee replacement with revision in September. 5. Left knee scope. 6. Hysterectomy. 7. Bilateral tubal ligation. 8. Lithotripsy. 9. Tonsillectomy. SOCIAL HISTORY: Three daughters. Lives at home alone. in 2009. Uses a walker to get around. 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 Quit smoking 50 years ago, but only smoked for about a year and a half at that time, and less than a half a pack per day. Denies alcohol or illicit drug use. FAMILY HISTORY: Mother's side of the family has diabetes and heart attack. Father's side of the family, she was unsure of. ALLERGIES: Xarelto. HOME MEDICATIONS: 1. Aspirin 81 mg p.o. nightly. 2. Brimonidine 2 drops to the right eye every night. 3. Amlodipine besylate 5 mg p.o. daily. 4. Losartan/hydrochlorothiazide 25/100 mg p.o. daily. 5. Lexapro 10 mg p.o. daily. 6. Pravachol 20 mg p.o. nightly. 7. Robaxin 750 mg p.o. t.i.d. 8. Rythmol 150 mg p.o. twice daily. 9. Metoprolol succinate (Toprol-XL) 50 mg p.o. daily. 10. Ultram 50 mg p.o. t.i.d. p.r.n. 11. Travatan 1 drop to right eye daily. 12. Vitamin D3, 2000 units p.o. daily. REVIEW OF SYSTEMS: A 14-point review of systems are complete. All are negative, except for those mentioned above in the HPI. States she has had excessive belching and flatulence, and felt like she was feverish this morning. She denies any nausea. She also complains of postnasal drip and runny nose that is clear. Otherwise, no other complaints. PHYSICAL EXAMINATION: VITAL SIGNS: Temperature 98.6 degrees, heart rate 124, respiratory rate 20, blood pressure 137/83, O2 saturation 100% on room air. GENERAL: La Nena Nixon is a 78-year-old female. She is in no acute distress. She is able to answer questions appropriately. HEENT: Atraumatic, normocephalic. Pupils equal, round, reactive to light. Extraocular movements intact. Mucous membranes are moist. NECK: Trachea midline. CARDIOVASCULAR: Irregularly irregular. Tachycardic rate and rhythm. No rubs, gallops, murmurs. No lower extremity edema. There are +2 dorsalis and radial pulses. Negative for JVD or carotid bruits. PULMONARY: Clear to auscultate. Bilateral breath sounds. No accessory muscle use or work of breathing noted. GASTROINTESTINAL: Soft, nontender, nondistended. Positive bowel sounds x4. EXTREMITIES: Moves all extremities equally. Decreased range of motion of the lower extremities. NEUROLOGIC: A and O x3. Follows commands. Sensory is intact, but she does complain of some numbness and tingling in the fingertips bilaterally. SKIN: Warm, dry, intact. LABORATORY DATA: White blood cells 7000, hemoglobin 8, hematocrit 28, platelet count 275,000. INR is 1.05, PTT is 30.1. Sodium 143, potassium 4.3, BUN 23, creatinine 1.7, glucose 116, calcium 9.4. Magnesium 1.8. Iron 19, total iron binding capacity 235, saturation 8, unsaturated is 216, total bilirubin 0.30, AST 16, ALT 10. Troponin less than 0.01. Albumin is 4.1. Amylase 55, lipase 29. Urinalysis: Trace protein, 1+ white blood cells, 20 to 40 microscopic white blood cells, no bacteria, no yeast. Clostridium difficile positive. IMAGING: None, but there is an EKG that shows atrial fibrillation with RVR. Rate was 142. ASSESSMENT AND PLAN: 1. Paroxysmal atrial fibrillation, currently in atrial fibrillation with rapid ventricular response. Rate is anywhere from 110s all the way up to 160. She has received a dose of Rythmol. She has received her Toprol this morning, and she will be started on a Cardizem drip, and followed in the [facility]. At home, she is only on aspirin secondary to high risk of gastrointestinal bleeding. 2. Clostridium difficile positive after several rounds of antibiotics. She will be started on oral vancomycin. 3. Gastroesophageal reflux disease. Continue with proton pump inhibitor. 4. History of gastrointestinal bleed with iron-deficiency anemia. Currently stable, although iron is low. We could start some iron. 5. Hyperlipidemia. Continue statin. 6. Depression. Continue home medications. 7. Hypothyroidism. Continue Synthroid. 8. Diastolic dysfunction. 9. Recent Helicobacter pylori. Had already received her medications for that. Followed by Dr. Blackburn. 10. Hypertension, currently stable. Continue Toprol. 11. Deep venous thrombosis prophylaxis. Lovenox. 12. Mild acute kidney injury, but it looks like she actually has chronic kidney disease stage 3, and it is pretty close to baseline, but she is dehydrated from the multiple bowel movements. She will get some intravenous fluid hydration. Dictated by AMY Espinoza for Jaya Krishnan MD cc: AMY Espinoza MD
[2019-04-13] MEDS: ULTRAM PO PRN (17:07)
[2019-04-13] MEDS: ROBAXIN PO PRN (18:59)
--- NOTE | 2019-04-13 20:51 | EKG Report ---
Test Performed on : 04/13/2019 8:37:46 PM Test Reason : cp Blood Pressure : / mmHG Vent. Rate : 063 BPM Atrial Rate : 063 BPM P-R Int : 156 ms QRS Dur : 096 ms QT Int : 454 ms P-R-T Axes : 050 -26 018 degrees QTc Int : 464 ms Sinus rhythm. with marked sinus arrhythmia. Otherwise normal ECG When compared with ECG of 13-APR-2019 14:42, No significant change was found Unconfirmed Result
[2019-04-13] MEDS: PRAVACHOL PO SCH (21:00)
[2019-04-13] MEDS: RYTHMOL PO SCH (22:01)
[2019-04-13] MEDS: PRILOSEC PO SCH (22:02)
[2019-04-13] MEDS: ASPIRIN PO SCH (22:02)
[2019-04-13] MEDS: TRAVATAN 0.004% OPH SOLN RIGHT EYE SCH (22:10)
--- NOTE | 2019-04-13 22:32 | ECHO REPORT ---
ORDER DATE: 04/13/2019 MEASUREMENTS: Septal thickness 1.4, left ventricular internal end diastole 5.0, posterior wall thickness 1.4, left ventricular internal end systole 3.0, left atrium 4.1, aortic root 3.1. SUMMARY: 1. Fair quality study. 2. Aortic valve is trileaflet and opens normally on 2-dimensional images. The peak gradient across the aortic valve is 10 to 15 mmHg. There is mild aortic regurgitation. Mitral, tricuspid, and pulmonic valves are without evidence of structural abnormality with mild mitral regurgitation, mild tricuspid regurgitation, and moderate pulmonic insufficiency. Estimated systolic PA pressure by Doppler is 35 mmHg. Aortic root is normal in size. 3. Normal left ventricular chamber size with mild to moderate concentric left hypertrophy is demonstrated. The estimated left ventricular ejection fraction appears to be at least 60%. No regional wall motion abnormality is evident. Mild biatrial enlargement is demonstrated. Right ventricle is normal in size with grossly preserved right ventricular systolic function. 4. No pericardial effusion. 5. Appearance of inferior vena cava suggests normal central venous pressure. CONCLUSIONS: 1. Mild aortic regurgitation. 2. Mild mitral regurgitation. 3. Mild tricuspid regurgitation and moderate pulmonic insufficiency. 4. Mild to moderate concentric left hypertrophy with estimated ejection fraction at least 60%. 5. Mild biatrial enlargement. 6. Atrial fibrillation during study. cc: MD Jaya Chavarria MD
[2019-04-14] MEDS: VANCOCIN PO SCH ×4 (02:34→21:07)
[2019-04-14] MEDS: NS 1,000 ML IV SCH ×2 (02:34→21:07)
--- NOTE | 2019-04-14 02:34 | HISTORY AND PHYSICAL ---
CHIEF COMPLAINT: Nausea, vomiting, abdominal pain. ADDENDUM: The patient is a 78-year-old female who presented to the hospital with nausea, vomiting and diarrhea. She was noted in the ER to be C difficile positive. She also is noted to be in atrial fibrillation with a rapid rate. We are going to admit her to the hospital, place her on oral vancomycin, treat her atrial fibrillation. We will adjust her medications as needed. Please see full note. cc: Jaya Krishnan MD
[2019-04-14 04:17] LABS: BASO# 0.02 X1000 (0.0-0.2); BASO% 0.3 % (0.0-0.8); EOS# 0.09 X1000 (0.0-0.7); EOS% 1.5 % (0.0-10.0); HEMATOCRIT 23.9 % (37.0-47.0); HEMOGLOBIN 7.3 g/dL (12.0-16.0); LYMPH% 19.4 % (20.5-51.1); MCH 26.4 PG (27-31); MCHC 30.5 g/dL (33-37); MCV 86.6 FL (81-99); MONO# 0.83 X1000 (0.11-0.59); MONO% 13.4 % (1.7-9.3); MPV 11.6 FL (7.4-10.4); NEUT# 4.04 X1000 (1.4-6.5); NEUT% 65.4 % (42.2-75.2); PLT 240 X1000 (130-400); RBC 2.76 XMIL (4.2-5.4); RDW 13.6 % (11.5-14.5); WBC 6.18 X1000 (4.8-10.8)
[2019-04-14 05:35] LABS: ALB/GLOB RATIO 1.3; ALBUMIN 3.6 g/dL (3.5-5.0); CALCIUM 8.5 mg/dL (8.8-10.2); CREATININE 1.6 mg/dL (0.5-0.9); MAGNESIUM 1.8 mg/dL (1.5-2.7); POTASSIUM 3.9 mmol/L (3.5-5.1); TOTAL BILIRUBIN 0.2 mg/dL (0.20-1.00); TOTAL PROTEIN 6.4 g/dL (6.3-8.3)
[2019-04-14] MEDS: PRILOSEC PO SCH ×2 (06:10→21:07)
--- NOTE | 2019-04-14 07:26 | EKG Report ---
Test Performed on : 04/14/2019 07:15:35 AM Test Reason : afib Blood Pressure : / mmHG Vent. Rate : 066 BPM Atrial Rate : 066 BPM P-R Int : 146 ms QRS Dur : 104 ms QT Int : 442 ms P-R-T Axes : 058 -13 053 degrees QTc Int : 463 ms Sinus rhythm. with premature atrial complexes. Otherwise normal ECG When compared with ECG of 13-APR-2019 20:37, (Unconfirmed) premature atrial complexes. are now present Confirmed by Дмитрий TERRAZAS, P.J.M ([id number]) on 04/15/2019 7:55:54 PM
[2019-04-14] MEDS: TOPROL XL PO SCH (08:01)
[2019-04-14] MEDS: LEXAPRO PO SCH (08:01)
[2019-04-14] MEDS: RYTHMOL PO SCH ×2 (08:02→21:07)
[2019-04-14] MEDS: NORVASC PO SCH (08:02)
[2019-04-14] MEDS: VITAMIN D PO SCH (08:02)
[2019-04-14] MEDS: LOVENOX SUBQ SCH (08:05)
[2019-04-14] MEDS ORDERED: LOVENOX SUBQ SCH (09:00)
[2019-04-14] MEDS: ALPHAGAN P 0.1% OPHTH SOLN RIGHT EYE SCH (09:36)
--- NOTE | 2019-04-14 09:47 | PROGRESS NOTE ---
DATE: 04/14/2019 Ms. Nixon is followed by Dr. Stephy Brown. A 78-year-old, female with a medical history of gastroesophageal reflux disease, GI bleed, iron deficiency anemia, history of transfusions, also history of paroxysmal atrial fibrillation. She has been only on aspirin because of a history of GI bleeding and she refuses to take anticoagulant. She recently has had a colonoscopy and EGD, was diagnosed with Helicobacter pylori. She received 2 rounds of antibiotics along with some Diflucan. Had recently had a tooth extraction and had some more antibiotics, I believe amoxicillin. I think her last round of antibiotics was in February. Apparently on Saturday, she had one spell of emesis. She stated it was because she took her Ultram on an empty stomach. Started to have persistent gelatinous orange diarrhea along with abdominal cramps and pain. Went to the primary care provider, Dr. Stephy Brown. Noted she was in atrial fibrillation with rapid ventricular rate and dehydrated. Sent her to the emergency department at [facility]. There was a sample sent to the lab and it was positive for Clostridium difficile. She was in atrial fibrillation with a rapid ventricular rate. The rate is controlled now, I think back in sinus rhythm. PAST MEDICAL HISTORY: 1. Gastroesophageal reflux disease. 2. GI bleed with blood transfusion in the past. 3. Rectocele. 4. Paroxysmal atrial fibrillation, only on aspirin, refuses other anticoagulant, history of GI bleeding. 5. 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 6. Peripheral vision is off. 7. Hyperlipidemia. 8. Depression. 9. Kidney stones. 10. Hypothyroidism. 11. Iron deficiency anemia. 12. TIA in September 2018. 13. Seasonal allergies. 14. Hypertension. 15. Diastolic dysfunction, had an echocardiogram done in September. 16. Helicobacter pylori. Had two rounds of antibiotics and is on Diflucan. PAST SURGICAL HISTORY: 1. Most recently had a colonoscopy and EGD. 2. Tooth extraction. 3. Left eye stye removed. 4. Right knee replacement. 5. Left knee scope. 6. Hysterectomy. 7. Bilateral tubal ligation. 8. Lithotripsy. 9. Tonsillectomy. PHYSICAL EXAMINATION: Today, sitting up. She is feeling a little better today. No nausea. She says, "I never get nausea", just 1 episode of throwing up. Temperature 98.6 degrees pulse 77, respirations 14. Pupils are equal and round. Lungs are clear in all lung matias. Cardiovascular Examination: Regular rhythm and rate without murmur or S3. Abdomen is soft. Skin is warm and dry. LABORATORY DATA: Reviewed from yesterday. Hematocrit 23, hemoglobin 7.3, white blood cell count 6180, platelet count is 240,000. Sodium 141, potassium 3.9, chloride 107, BUN 27, creatinine 1.6. Echocardiogram with Doppler was done, mild aortic regurgitation, mild mitral regurgitation, mild tricuspid regurgitation, moderate pulmonary insufficiency, mild to moderate concentric left ventricular hypertrophy, estimated ejection fraction of 60%, mild bilateral enlargement, atrial fibrillation during the study. ASSESSMENT AND PLAN: 1. Clostridium difficile. She is getting vancomycin by mouth 125 mg every 6 hours. 2. Atrial fibrillation, back in sinus rhythm. Rate has been controlled. She does not want anticoagulant. I believe she is just on a baby aspirin. 3. Lower lumbar sacral pain. Hopefully, she is not going to stay in the hospital very long. Maybe we can set her up to go home soon. cc: Anthony Bowen MD
--- NOTE | 2019-04-14 12:07 | Diag Imaging Result Doc PS360 ---
EXAM: CHEST-2 VIEWS 04/14/2019 HISTORY: sob TECHNIQUE: PA and lateral chest COMMENT: There is cardiomegaly. There is platelike opacity in the lingula and some thickening of the minor fissure on the right. Both these findings were present on 01/02/2019. Overall there has been no significant change since the previous study. IMPRESSION: Stable chest. Electronically signed by Arvin De Dios 04/14/2019 12:05 PM
[2019-04-14] MEDS: ROBAXIN PO PRN (13:50)
[2019-04-14] MEDS: ULTRAM PO PRN (13:50)
[2019-04-14] MEDS: PRAVACHOL PO SCH (21:07)
[2019-04-14] MEDS: ASPIRIN PO SCH (21:07)
[2019-04-14] MEDS: TRAVATAN 0.004% OPH SOLN RIGHT EYE SCH (21:07)
[2019-04-15] MEDS: VANCOCIN PO SCH ×3 (02:32→15:07)
[2019-04-15] MEDS: PRILOSEC PO SCH (06:53)
[2019-04-15 07:57] LABS: BASO# 0.03 X1000 (0.0-0.2); BASO% 0.8 % (0.0-0.8); EOS# 0.16 X1000 (0.0-0.7); HEMATOCRIT 22.5 % (37.0-47.0); HEMOGLOBIN 6.8 g/dL (12.0-16.0); LYMPH# 0.88 X1000 (1.2-3.4); LYMPH% 22.2 % (20.5-51.1); MCH 26.5 PG (27-31); MCHC 30.2 g/dL (33-37); MCV 87.5 FL (81-99); MONO# 0.43 X1000 (0.11-0.59); MONO% 10.9 % (1.7-9.3); NEUT# 2.46 X1000 (1.4-6.5); NEUT% 62.1 % (42.2-75.2); PLT 217 X1000 (130-400); RBC 2.57 XMIL (4.2-5.4); RDW 13.5 % (11.5-14.5); WBC 3.96 X1000 (4.8-10.8)
[2019-04-15 08:01] LABS: AGAP 13; ALB/GLOB RATIO 1.3; ALBUMIN 3.4 g/dL (3.5-5.0); ALKALINE PHOSPHATASE 57 U/L (32-104); BUN 23 mg/dL (8-22); CALCIUM 8.3 mg/dL (8.8-10.2); CHLORIDE 108 mmol/L (98-107); COSMO 287; CREATININE 1.2 mg/dL (0.5-0.9); ESTIMATED GFR 52; GLUCOSE 94 mg/dL (70-104); GOT 15 U/L (10-30); GPT 9 U/L (10-36); MAGNESIUM 1.8 mg/dL (1.5-2.7); POTASSIUM 3.8 mmol/L (3.5-5.1); SODIUM 142 mmol/L (136-145); TCO2 21 mmol/L (25-35); TOTAL BILIRUBIN < 0.15 mg/dL (0.20-1.00); TOTAL PROTEIN 6.1 g/dL (6.3-8.3)
[2019-04-15] MEDS: NORVASC PO SCH (08:47)
[2019-04-15] MEDS: LEXAPRO PO SCH (08:47)
[2019-04-15] MEDS: VITAMIN D PO SCH (08:47)
[2019-04-15] MEDS: TOPROL XL PO SCH (08:47)
[2019-04-15] MEDS: RYTHMOL PO SCH (08:47)
[2019-04-15] MEDS: LOVENOX SUBQ SCH (08:47)
[2019-04-15] MEDS: ALPHAGAN P 0.1% OPHTH SOLN RIGHT EYE SCH (08:57)
[2019-04-15] MEDS: NS 1,000 ML IV SCH (10:00)
[2019-04-15 11:23] VITALS: BP 171/60
--- NOTE | 2019-04-15 17:35 | DISCHARGE SUMMARY ---
ADMISSION DATE: 04/13/2019 DISCHARGE DATE: 04/15/2019 PROVIDER: She is a patient of Dr. Stephy Brown. HISTORY OF PRESENT ILLNESS: This is a 78-year-old, -Martiniquais female, with a history of gastroesophageal reflux, GI bleed, iron deficiency anemia, history of transfusion. Also, has a history of paroxysmal atrial fibrillation, on aspirin because of this history of GI bleeding. She had diagnosis of Helicobacter pylori, received 2 rounds of antibiotics along with Diflucan. She also most recently had a tooth extraction. She had some antibiotics as well, I think amoxicillin. Last round of antibiotics was late February. Apparently, Saturday, had a spell of emesis, which started after she took some Ultram on an empty stomach, started having persistent gelatinous orange diarrhea, along with abdominal cramps and pain. She went to primary care provider in the morning, noted that she had atrial fibrillation with rapid ventricular rate, was dehydrated, and sent her to the emergency department here at [facility]. Stool sample was sent, was positive for Clostridium difficile. Also, received vancomycin. She was found to have atrial fibrillation with rapid ventricular rate and started on a Cardizem drip, transferred to [facility]. Vital signs currently on admission when I saw her were stable. PAST MEDICAL HISTORY: 1. Gastroesophageal reflux disease. 2. GI bleed with 4 blood transfusions in the past. 3. Rectocele. 4. Paroxysmal atrial fibrillation, only on aspirin due to history of GI bleeding. 5. 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 6. Peripheral vision is off. 7. Hyperlipidemia. 8. Depression. 9. Kidney stones. 10. Hypothyroidism. 11. Iron deficiency anemia. 12. TIA on 10/13/2018. 13. Seasonal allergies. 14. Hypertension. 15. Diastolic dysfunction with echocardiogram in September. 16. Helicobacter pylori, 2 rounds of antibiotics and Diflucan. PAST SURGICAL HISTORY: 1. Most recently, colonoscopy with EGD. 2. Tooth extraction. 3. Left eye stye removed. 4. Right knee replacement and revision in September. 5. Left knee scope. 6. Hysterectomy. 7. Bilateral tubal ligation. 8. Lithotripsy. 9. Tonsillectomy. ADMISSION DIAGNOSES: 1. Paroxysmal atrial fibrillation, currently in atrial fibrillation with rapid ventricular rate. Rate was 110 to 160. Received a dose of Rythmol and received her Toprol the morning of admission. She was put on a Cardizem drip and moved to the [facility]. 2. Clostridium difficile. Positive for several rounds of antibiotics. 3. Gastroesophageal reflux. She continued proton pump inhibitor. 4. Gastrointestinal bleed with iron deficiency anemia. Currently stable, though her iron is low. She is only on aspirin right now. 5. Hyperlipidemia. Continue statin. 6. Depression. 7. Hypothyroidism. 8. History of diastolic dysfunction. 9. Helicobacter pylori. Recently treated with antibiotic regimen. 10. Hypertension. HOSPITAL COURSE: She was put on deep venous thrombosis prophylaxis. She had mild acute kidney injury. She has chronic kidney disease stage 3. Renal function improved. She had an echocardiogram on 04/13/2019, showed mild aortic regurgitation, mild mitral regurgitation, mild tricuspid regurgitation, moderate pulmonary insufficiency, [id number] concentric left ventricular hypertrophy, estimated ejection fraction 60%, mild bilateral atrial enlargement, and she was in atrial fibrillation during this study. Her chest x-ray on 04/14/2019, without any infiltrates, no sign of pulmonary venous hypertension. Note, she converted back into sinus rhythm, rate was controlled. She was started on vancomycin p.o., which we will continue. Clinically, felt good, stool started forming, and she was wanting to go home. DISCHARGE MEDICATIONS: Put her on Norvasc 5 mg a day, aspirin 81 mg a day, continue her Alphagan eye drops, vitamin D 2000 units subcutaneous every morning, Cardizem has been stopped, Lexapro 10 mg every morning, Robaxin 750 mg t.i.d. p.r.n., Toprol-XL 50 mg p.o. every morning, Prilosec 40 mg b.i.d., Pravachol 20 mg a day, Rythmol 150 mg b.i.d., Ultram 50 mg t.i.d. p.r.n. for pain, Travatan eyedrops to right eye continue as before, vancomycin 125 mg q.6 hours, Ambien 5 mg at bedtime p.r.n. sleep. FOLLOWUP: She will follow up with her primary care and her homeopathic doctor, who I believe is Dr. Valdes. cc: Anthony Bowen MD
== END 2019-04-15 16:57 | disposition home or self-care (01) | DRG 309 ==
LOC: P.ED 09:11 → SUATTDRO 13:29 → P.EDIPHOLD 13:29 → EDIPHOLD 13:39 → 3N 13:39 → 2N 13:39
PROVIDERS: ATTEND Emergency Medicine

== ENCOUNTER 2019-05-13 06:40 | Observation (INO) ==
[2019-05-13 07:21] LABS: BASO# 0.03 X1000 (0.0-0.2); BASO% 0.5 % (0.0-0.8); EOS# 0.15 X1000 (0.0-0.7); EOS% 2.6 % (0.0-10.0); HEMATOCRIT 26.3 % (37.0-47.0); IMM GRAN# 0.02 X1000 (0.0-0.04); IMM GRAN% 0.3 % (0.0-0.5); LYMPH# 0.76 X1000 (1.2-3.4); LYMPH% 13.2 % (20.5-51.1); MCH 25.7 PG (27-31); MCHC 30.4 g/dL (33-37); MCV 84.6 FL (81-99); MONO# 0.42 X1000 (0.11-0.59); MONO% 7.3 % (1.7-9.3); MPV 11.9 FL (7.4-10.4); NEUT# 4.37 X1000 (1.4-6.5); NEUT% 76.1 % (42.2-75.2); PLT 279 X1000 (130-400); RBC 3.11 XMIL (4.2-5.4); WBC 5.75 X1000 (4.8-10.8)
--- NOTE | 2019-05-13 07:40 | Diag Imaging Result Doc PS360 ---
EXAM: CHEST-2 VIEWS INDICATION: SOB/chest pain TECHNIQUE: 2 views COMPARISON: 04/14/2019 FINDINGS: The central vasculature is prominent and there is mild interstitial thickening indicating pulmonary venous congestion and interstitial edema. There is trace fissural fluid bilaterally. No pneumothorax is appreciated. There is stable cardiomegaly. IMPRESSION: Pulmonary venous congestion and interstitial edema as described. Electronically signed by Tushar Bojorquez 05/13/2019 7:38 AM
--- NOTE | 2019-05-13 07:54 | PROVIDER DOCUMENTATION ---
HPI-Chest Pain - General Chief Complaint: Shortness of Breath Stated Complaint: sob Time Seen by Provider: 05/13/19 07:14 Source: patient, family Allergies/Adverse Reactions: Patient Allergies Allergy/AdvReac Type Severity Reaction Status Date / Time rivaroxaban [From Xarelto] AdvReac Unknown Verified 05/13/19 07:14 Home Medications: Home Medication List Medication Instructions Recorded Confirmed Last Taken Type Aspirin 81 mg PO QHS 03/25/14 05/13/19 05/13/19 History Brimonidine 0.1% Ophth Soln 2 drop RIGHT EYE QAM 03/25/14 05/13/19 05/12/19 History [Alphagan P 0.1% Ophth Soln] Metoprolol Succinate [Toprol Xl] 50 mg PO QAM 03/25/14 05/13/19 05/12/19 History Pravastatin Sodium [Pravachol] 20 mg PO HS 03/25/14 05/13/19 05/12/19 History Tramadol HCl 50 mg PO TID PRN PRN 03/25/14 05/13/19 05/12/19 History Cholecalciferol (Vitamin D3) 1 cap PO QAM 10/02/18 05/13/19 05/12/19 History [Vitamin D3] Escitalopram Oxalate [Lexapro] 20 mg PO QAM 10/02/18 05/13/19 05/13/19 History Methocarbamol [Robaxin-750] 750 mg PO TID PRN 10/02/18 05/13/19 05/12/19 History Propafenone [Rythmol] 150 mg PO BID 10/02/18 05/13/19 05/13/19 History Amlodipine Besylate 5 dose PO DAILY 04/13/19 05/13/19 05/12/19 History - History of Present Illness-CP Nature of Presenting Problem: awoke this am ~0300, with pressure feeling to lower chest, abd. Had SOB, nausea, no vomiting. Feels better after taking ASA, NTG. Nothing else makes better, worse. Has had nausea the past week, no diarrhea. Also her BP has been higher than usual, blames both on being switched from Hyzaar to Cozzar. Location: reports: substernal Chest Pain Radiation: reports: other (emtire abd feel "tight") Quality of Pain: reports: tightness Nitro Today/Relief: provided by EMS Aspirin Treatment Today: provided by EMS Similar Symptoms Previously?: No Recently Seen Here or By Another Healthcare Provider: Yes Review of Systems - Adult - REVIEW OF SYSTEMS - ADULT Constitutional: reports: no symptoms reported Eyes: reports: no symptoms reported Ears, Nose, Mouth & Throat: reports: no symptoms reported Cardiovascular: reports: see HPI Respiratory: reports: see HPI, cough (this am, per family) Gastrointestinal: reports: see HPI Genitourinary: reports: no symptoms reported Musculoskeletal: reports: no symptoms reported Integumentary: reports: no symptoms reported Neurological: reports: no symptoms reported Psychiatric: reports: no symptoms reported Endocrine: reports: no symptoms reported Hematologic/Lymphatic: reports: no symptoms reported Allergic/Immunologic: reports: no symptoms reported Past History - Adult - PAST MEDICAL HISTORY-ADULT Review of Records: reports: Medications Reviewed Major Childhood Illnesses: reports: denies history Cardiovascular: reports: A-Fib, CAD, HTN, hyperlipidemia Respiratory: reports: sleep apnea Gastrointestinal: reports: denies history Obstetrical/Gynecological: reports: denies history Genitourinary: reports: denies history Musculoskeletal: reports: denies history Neurological: reports: denies history Endocrine/Immune: reports: thyroid disorder Other Conditions: reports: denies history - PRIOR SURGERIES/PROCEDURES Surgical/Procedure History: reports: hysterectomy, tonsillectomy, orthopedic (extremity), joint replacement (TKR), other (lithrotripsy) - PRIOR HOSPITALIZATIONS Prior Hospitalizations: reports: for other non-related - IMMUNIZATION STATUS Childhood Immunizations: See Nurse Assessment Flu Vaccine: See Nurse Assessment - FAMILY HISTORY Family History: reviewed, not pertinent Physical Exam-General - PHYSICAL EXAM-ADULT Initial Vital Signs Reviewed: Yes - CONSTITUTIONAL General Appearance: appears well, alert, mild distress - EYES Eyes: PERRL/EOMI, pink conjunctivae - HEAD, EARS, NOSE, MOUTH & THROAT HENMT: normocephalic/atraumatic, moist mucous membranes, normal ENT inspection, pharynx normal - NECK Neck: full range of motion, supple, normal inspection - RESPIRATORY Respiratory: lungs clear, normal breath sounds, no pleuratic chest pain, no respiratory distress, no accessory muscle use - CARDIOVASCULAR Cardiovascular: regular rate, rhythm, no edema, no gallop, no murmur - GASTROINTESTINAL (ABDOMEN) Abdominal Exam: normal bowel sounds, soft, tenderness (mild epigastric, LUQ) - MUSCULOSKELETAL Back Exam: normal inspection, no CVA tenderness, no vertebral tenderness Extremity: normal range of motion, non-tender, normal gait, normal inspection - SKIN Integumentary: normal color, normal turgor, warm/dry - NEUROLOGIC Neurologic: publisher assistant II-XII nml as tested, grossly normal, no motor/sensory deficits - PSYCHIATRIC Psych/Mental Status: normal mood/affect, normal thought content, normal thought process, oriented x 3 Progress - PLAN OF CARE/RESULTS Progress/Plan/Lab Results: Vital Signs - 8 hr 05/13/19 06:43 05/13/19 06:49 05/13/19 07:00 Temperature 99.6 F Pulse Rate 76 76 Respiratory Rate 12 22 Blood Pressure 206/110 206/110 O2 Sat by Pulse Oximetry 95 95 97 05/13/19 07:03 05/13/19 07:04 05/13/19 07:30 Temperature Pulse Rate 65 67 68 Respiratory Rate 19 23 24 Blood Pressure 208/83 202/93 202/93 O2 Sat by Pulse Oximetry 99 98 97 05/13/19 08:00 05/13/19 08:24 05/13/19 08:25 Temperature Pulse Rate 62 64 66 Respiratory Rate 24 21 23 Blood Pressure 175/77 179/75 175/77 O2 Sat by Pulse Oximetry 97 100 97 05/13/19 08:29 05/13/19 08:30 05/13/19 08:32 Temperature Pulse Rate 65 65 67 Respiratory Rate 27 H 22 26 H Blood Pressure 175/77 180/83 180/83 O2 Sat by Pulse Oximetry 100 97 100 05/13/19 08:35 05/13/19 08:37 05/13/19 08:40 Temperature Pulse Rate 64 66 64 Respiratory Rate 21 25 H 23 Blood Pressure 183/73 179/85 179/85 O2 Sat by Pulse Oximetry 100 100 97 05/13/19 08:42 05/13/19 08:58 05/13/19 09:00 Temperature Pulse Rate 67 66 Respiratory Rate 20 29 H 20 Blood Pressure 189/92 207/83 193/74 O2 Sat by Pulse Oximetry 99 100 100 05/13/19 09:01 05/13/19 09:03 05/13/19 09:07 Temperature Pulse Rate 65 63 67 Respiratory Rate 15 23 23 Blood Pressure 199/74 202/85 O2 Sat by Pulse Oximetry 100 100 05/13/19 09:18 05/13/19 09:23 05/13/19 09:28 Temperature Pulse Rate 69 62 63 Respiratory Rate 23 19 19 Blood Pressure 211/83 193/76 195/78 O2 Sat by Pulse Oximetry 100 100 100 05/13/19 09:30 05/13/19 09:32 05/13/19 09:37 Temperature Pulse Rate 62 62 67 Respiratory Rate 20 18 23 Blood Pressure 189/76 197/78 190/78 O2 Sat by Pulse Oximetry 100 100 99 05/13/19 09:46 05/13/19 09:47 05/13/19 09:52 Temperature Pulse Rate 70 64 61 Respiratory Rate 29 H 19 17 Blood Pressure 189/76 183/73 185/72 O2 Sat by Pulse Oximetry 99 99 97 05/13/19 09:58 05/13/19 10:00 05/13/19 10:03 Temperature Pulse Rate 62 67 58 L Respiratory Rate 24 20 21 Blood Pressure 189/73 194/71 194/71 O2 Sat by Pulse Oximetry 97 100 95 05/13/19 10:08 05/13/19 10:30 05/13/19 11:02 Temperature Pulse Rate 62 62 70 Respiratory Rate 23 20 18 Blood Pressure 183/67 187/73 193/71 O2 Sat by Pulse Oximetry 98 100 100 05/13/19 06:48 Influenza Screen - Final Nasopharyngeal Laboratory Results - last 24 hr 05/13/19 05/13/19 05/13/19 06:52 06:52 06:52 WBC 5.75 RBC 3.11 L Hgb 8.0 L Hct 26.3 L MCV 84.6 MCH 25.7 L MCHC 30.4 L RDW Std Deviation 14.0 Plt Count 279 MPV 11.9 H Immature Gran % (Auto) 0.3 Neut % (Auto) 76.1 H Lymph % (Auto) 13.2 L Dare % (Auto) 7.3 Eos % (Auto) 2.6 Baso % (Auto) 0.5 Immature Gran # (Auto) 0.02 Neut # (Auto) 4.37 Lymph # (Auto) 0.76 L Dare # (Auto) 0.42 Eos # (Auto) 0.15 Baso # (Auto) 0.03 PT INR PTT (Actin FS) Sodium 141 Potassium 4.0 Chloride 106 Carbon Dioxide 21 L Anion Gap 14 BUN 13 Creatinine 1.1 H BUN/Creatinine Ratio 12 Glucose 113 H Calculated Osmolality 282 Calcium 8.9 Total Bilirubin 0.30 AST 21 ALT 49 H Alkaline Phosphatase 84 Creatine Kinase 64 Troponin T [id number] Pept 1841 H Total Protein 6.7 Albumin 3.8 Globulin 2.9 Albumin/Globulin Ratio 1.3 05/13/19 05/13/19 05/13/19 06:52 06:52 10:48 WBC RBC Hgb Hct MCV MCH MCHC RDW Std Deviation Plt Count MPV Immature Gran % (Auto) Neut % (Auto) Lymph % (Auto) Dare % (Auto) Eos % (Auto) Baso % (Auto) Immature Gran # (Auto) Neut # (Auto) Lymph # (Auto) Dare # (Auto) Eos # (Auto) Baso # (Auto) PT 14.2 INR 1.09 PTT (Actin FS) 30.2 Sodium Potassium Chloride Carbon Dioxide Anion Gap BUN Creatinine BUN/Creatinine Ratio Glucose Calculated Osmolality Calcium Total Bilirubin AST ALT Alkaline Phosphatase Creatine Kinase Troponin T < 0.010 < 0.010 [id number] Pept Total Protein Albumin Globulin Albumin/Globulin Ratio Orders Category Date Time Status Cardiac Monitoring DIRECTED Care 05/13/19 07:03 Active Oxygen Therapy- ED Nursing DIRECTED Care 05/13/19 07:03 Active Saline Loc NOW Care 05/13/19 07:03 Active CHEST-2 VIEWS [RAD] Stat Exams 05/13/19 07:03 Completed CBC WITH ELECTRONIC DIFF [HEME] Stat Lab 05/13/19 06:52 Completed CK PROFILE [SP CHEM] Stat Lab 05/13/19 06:52 Completed COMPREHENSIVE METABOLIC PANEL [CHEM] Stat Lab 05/13/19 06:52 Completed INFLUENZA SCREEN A/B Stat Lab 05/13/19 06:48 Completed PRO B-NATRIURETIC PEPTIDE Stat Lab 05/13/19 06:52 Completed PROTIME WITH INR [COAG] Stat Lab 05/13/19 06:52 Completed PTT [COAG] Stat Lab 05/13/19 06:52 Completed TROPONIN T Stat Lab 05/13/19 06:52 Completed TROPONIN T Stat Lab 05/13/19 10:48 Completed Furosemide [Lasix] Med 05/13/19 07:57 Discontinued 40 mg IV NOW ONE Labetalol Med 05/13/19 07:55 Discontinued 20 mg IV NOW ONE CP/SOB/Palp >45 yrs of Age Stat Oth 05/13/19 07:02 Ordered EKG [EKG] Stat Ther 05/13/19 06:51 Draft Result Diagrams: 05/13/19 06:52 05/13/19 06:52 - EKG 1 Time of EKG reading by physician:: 07:01 EKG Read and Signed by:: Rodrigo Matthews EKG Interpretation (*Must complete 3 of following elements*): Abnormal Rate: 69 Rhythm: NSR with PVC [place]: left QRS: normal ST Wave: normal - XRAY 1 XRAY Study: Chest (EXAM: CHEST-2 VIEWS INDICATION: SOB/chest pain TECHNIQUE: 2 views COMPARISON: 04/14/2019 FINDINGS: The central vasculature is prominent and there is mild interstitial thickening indicating pulmonary venous congestion and interstitial edema. There is trace fissural fluid bilaterally. No pneumothorax is appreciated. There is stable cardiomegaly. IMPRESSION: Pulmonary venous congestion and interstitial edema as described. Electronically signed by Tushar Bojorquez 05/13/2019 7:38 AM 05/13/19 0738 Interpreting Physician: Tushar Bojorquez MD Dictated Date/Time: 05/13/19 0737 cc: Edson Gambino MD; Stephy Brown MD) Impression: Abnormal - CONSULTS/PCP/HOSPITALIST Notification #1 *Consult/PCP/Hospitalist*: [place] Time Discussed: 13:31 Consult Disposition: Will see in ED, Admit Departure - Departure Date of Disposition Decision: 05/13/19 Time of Disposition Decision: 13:30 DIAGNOSIS: New onset of congestive heart failure Disposition: ADMITTED INPATIENT 09 Certified Medical Emergency: Emergent Condition: Good Referrals and Follow-Ups: Stephy Brown MD [Primary Care Provider] - - Critical Care Note This patient required my direct & personal management of CC.: No Attestation - Physician/ ANALI Attestation Patient care was provided by Advanced Practice Provider:: No The physician spent face to face time with patient:: Yes Advanced Practice Provider documentation review:: Supervising physician onsite and consulted in the evaluation and care of this patient. The physician did have a face to face encounter with the patient.
[2019-05-13] MEDS ORDERED: LABETALOL IV ONE (07:55)
[2019-05-13] MEDS ORDERED: LASIX IV ONE (07:57)
[2019-05-13 08:05] LABS: CHLORIDE 106 mmol/L (98-107); SODIUM 141 mmol/L (136-145)
[2019-05-13 08:06] LABS: AGAP 14; ALB/GLOB RATIO 1.3; ALBUMIN 3.8 g/dL (3.5-5.0); ALKALINE PHOSPHATASE 84 U/L (32-104); BUN 13 mg/dL (8-22); CALCIUM 8.9 mg/dL (8.8-10.2); CK PROFILE 64 U/L (24-173); COSMO 282; CREATININE 1.1 mg/dL (0.5-0.9); GLUCOSE 113 mg/dL (70-104); GOT 21 U/L (10-30); GPT 49 U/L (10-36); TCO2 21 mmol/L (25-35); TOTAL PROTEIN 6.7 g/dL (6.3-8.3)
[2019-05-13 08:17] LABS: INR 1.09; PROTIME 14.2 Seconds (11.0-16.0); PTT 30.2 Seconds (22.3-41.8)
--- NOTE | 2019-05-13 08:21 | EKG Report ---
Test Performed on : 05/13/2019 07:00:37 AM Test Reason : chest pain/sob Blood Pressure : / mmHG Vent. Rate : 069 BPM Atrial Rate : 069 BPM P-R Int : 128 ms QRS Dur : 104 ms QT Int : 432 ms P-R-T Axes : 036 -34 043 degrees QTc Int : 462 ms Sinus rhythm. with premature supraventricular complexes. and with occasional premature ventricular co mplexes. Left axis deviation Abnormal ECG When compared with ECG of 14-APR-2019 07:15, premature ventricular complexes. are now present Unconfirmed Result
[2019-05-13] MEDS ORDERED: APRESOLINE IV PRN (16:09)
[2019-05-13] MEDS ORDERED: ZOFRAN IV PRN (16:09)
[2019-05-13] MEDS ORDERED: TYLENOL PO PRN (16:09)
[2019-05-13] MEDS ORDERED: ULTRAM PO PRN (16:09)
[2019-05-13] MEDS ORDERED: LABETALOL IV PRN (17:16)
[2019-05-13] MEDS ORDERED: TRANDATE PO ONE (17:16)
[2019-05-13] MEDS: LOVENOX SUBQ SCH (17:37)
[2019-05-13] MEDS: LASIX IV SCH (17:37)
[2019-05-13 18:08] LABS: URINE SOURCE CLEAN CATCH
[2019-05-13 18:11] LABS: BILIRUBIN URINE NEGATIVE (NEGATIVE); BLOOD URINE NEGATIVE (NEGATIVE); COLOR STRAW; GLUCOSE URINE NEGATIVE (NEGATIVE); KETONE URINE NEGATIVE (NEGATIVE); LEUKOCYTES URINE NEGATIVE (NEGATIVE); NITRITE URINE NEGATIVE (NEGATIVE); PH URINE 6.5; PROTEIN URINE 50 mg/dL (NEGATIVE); TURBIDITY URINE CLEAR (CLEAR); UROBILINOGEN URINE NORMAL (NORMAL)
[2019-05-13 18:14] LABS: UR EPITHELIAL CELLS <10 /HPF (<10); URINE BACTERIA NEGATIVE /HPF; URINE RBC <10 /HPF (<10); URINE WBC <10 /HPF (<10)
--- NOTE | 2019-05-13 18:37 | HISTORY AND PHYSICAL ---
PRIMARY CARE PHYSICIAN: Dr. Brown. CHIEF COMPLAINT: Of being woken up around 3 a.m. with shortness of breath and chest pressure that went down into her stomach with some associated nausea. It appears she was discharged from this facility April 15 after having a bout with C diff after being on some antibiotics and she also at that time was diagnosed with a diastolic congestive heart failure with an ejection fraction of 60% per an echocardiogram done on 04/13/2019. When she arrived to the emergency room, she was noted to have an elevated blood pressure of 206/110 and was saturating 95% on room air. Her proBNP was 1841, which was an increase from 10/02/2018 when it was 983. Chest x-ray showed pulmonary venous congestion and interstitial edema. So, she will be admitted and diuresed for further evaluation and treatment. PAST MEDICAL HISTORY: Atrial fibrillation, coronary artery disease, hypertension, hyperlipidemia, depression, sleep apnea, hypothyroidism, GERD, GI bleed, iron-deficiency anemia, TIA, diastolic congestive heart failure with known ejection fraction of 60% per her echo on 04/13/2019. PAST SURGICAL HISTORY: Hysterectomy, tonsillectomy, total knee replacement, bilateral tubal ligation, lithotripsy and a parathyroidectomy. FAMILY HISTORY: Reviewed and noncontributory. SOCIAL HISTORY: She currently lives alone. Denies any tobacco, alcohol or illicit drug use. Allergies: To Xarelto. HOME MEDICATIONS: She takes amlodipine 5 mg p.o. daily, aspirin 81 mg p.o. daily, Alphagan drops 2 drops to the right eye q.a.m., vitamin D3 2000 units p.o. q.a.m., Lexapro 20 mg p.o. q.a.m., Robaxin 750 mg p.o. t.i.d., metoprolol 50 mg p.o. q.a.m., pravastatin 20 mg p.o. at bedtime, Rythmol 150 mg p.o. b.i.d., and tramadol 50 mg p.o. t.i.d. p.r.n. LABORATORY DATA: Showed a white blood cell count of 5.75, hemoglobin 8, hematocrit 26.3, and platelets 279,000. PT and INR of 14.2 and 1.09. Sodium 141, potassium 4, chloride 106, CO2 21, BUN of 13, creatinine 1.1, glucose 113. Cardiac enzymes x2 sets were negative. ProBNP of 1841. Chest x-ray that showed pulmonary venous congestion and interstitial edema. EKG showed a sinus rhythm with premature supraventricular complexes and with occasional PVCs at 69. REVIEW OF SYSTEMS: She denied any fever, chills, blurred vision, dizziness. She had chest pressure, shortness of breath, and nausea. Denied any vomiting, abdominal pain, constipation, diarrhea, burning or hurting with urination. PHYSICAL EXAMINATION: VITAL SIGNS: On arrival, she had a temperature of 99.6 degrees, pulse 76, respirations 12, blood pressure 206/110, saturating 95% on room air. Blood pressure is currently down to 187/73. HEENT: Normocephalic, atraumatic. Normal ENT inspection. Oropharynx and nares are clear. EYES: Pupils are equal, round, reactive to light and accommodation. Extraocular movements are intact. NECK: Normal inspection. Normal range of motion. LUNGS: Clear to auscultation bilaterally with equal lung expansion and chest wall movement. HEART: With regular rate and rhythm. No murmurs, rubs, or gallops. ABDOMEN: Soft, nontender, nondistended. Bowel sounds are present x4 quadrants. MUSCULOSKELETAL: She has 5/5 strength x4 extremities. NEUROLOGICAL: The cranial nerves 2-12 appear grossly intact. ASSESSMENT: 1. Dyspnea. 2. Uncontrolled hypertension. 3. An acute diastolic congestive heart failure exacerbation. OUR PLAN: She will be admitted to the medical unit placed on telemetry, O2 per protocol, healthy heart diet. We will continue her home medications. Place on Lasix 40 mg IV q.12, we will do daily weights. We will give her some hydralazine 10 mg IV q.4 hours p.r.n. for a systolic blood pressure greater than 190, diastolic greater than 100. She does state that she did not take her medications this morning, so we will get those restarted. We will not repeat her echo since she just had 1 about a month ago that showed her ejection fraction was 60% with some diastolic failure and we will place her on Lovenox 40 mg subcutaneous q.24 for deep vein thrombosis prophylaxis. Further orders after seen by attending. Dictated by AMY Rich for Yevgeniy Alvarado MD cc: AMY Rich MD Bernice Swain, MD Pt examined; pt has uncontrolled HTN and afib with RVR: pt is clearly in failure and has rales on exam and increased WOB; will admit for diuresis, rate control and blood pressure control; will switch to labetalol for BP control. APENOT MTDD
[2019-05-13] MEDS: PRAVACHOL PO SCH (21:39)
[2019-05-13] MEDS: ASPIRIN PO SCH (21:39)
[2019-05-13] MEDS: RYTHMOL PO SCH (21:39)
[2019-05-13 22:26] LABS: CALCIUM 8.6 mg/dL (8.8-10.2); CREATININE 1.3 mg/dL (0.5-0.9); MAGNESIUM 1.6 mg/dL (1.5-2.7); POTASSIUM 3.6 mmol/L (3.5-5.1)
--- NOTE | 2019-05-13 23:59 | EKG Report ---
Test Performed on : 05/13/2019 9:58:49 PM Test Reason : Weakness,Near-Syncope Blood Pressure : / mmHG Vent. Rate : 110 BPM Atrial Rate : 241 BPM P-R Int : 000 ms QRS Dur : 100 ms QT Int : 382 ms P-R-T Axes : 000 -43 073 degrees QTc Int : 516 ms Atrial flutter. with variable AV block. Left axis deviation Nonspecific ST abnormality Abnormal ECG When compared with ECG of 13-MAY-2019 07:00, (Unconfirmed) Atrial flutter. has replaced Sinus rhythm. Vent. rate has increased BY 41 BPM Confirmed by Chris TERRAZAS, Venkat ([id number]) on 05/14/2019 8:21:45 AM
[2019-05-14] MEDS: LASIX IV SCH ×2 (05:03→15:58)
[2019-05-14 07:28] LABS: BASO# 0.03 X1000 (0.0-0.2); BASO% 0.6 % (0.0-0.8); EOS# 0.07 X1000 (0.0-0.7); EOS% 1.5 % (0.0-10.0); HEMOGLOBIN 8.6 g/dL (12.0-16.0); LYMPH# 0.84 X1000 (1.2-3.4); LYMPH% 17.9 % (20.5-51.1); MCH 25.9 PG (27-31); MCHC 30.7 g/dL (33-37); MCV 84.3 FL (81-99); MONO# 0.48 X1000 (0.11-0.59); MONO% 10.3 % (1.7-9.3); MPV 11.9 FL (7.4-10.4); NEUT# 3.26 X1000 (1.4-6.5); NEUT% 69.7 % (42.2-75.2); PLT 302 X1000 (130-400); RBC 3.32 XMIL (4.2-5.4); RDW 14.3 % (11.5-14.5); WBC 4.68 X1000 (4.8-10.8)
[2019-05-14 07:46] LABS: CALCIUM 8.7 mg/dL (8.8-10.2); CREATININE 1.2 mg/dL (0.5-0.9); POTASSIUM 3.1 mmol/L (3.5-5.1)
[2019-05-14] MEDS: ROBAXIN PO PRN (07:59)
[2019-05-14] MEDS ORDERED: NORVASC PO SCH (09:00)
[2019-05-14] MEDS: LEXAPRO PO SCH (10:22)
[2019-05-14] MEDS: VITAMIN D PO SCH (10:23)
[2019-05-14] MEDS: TOPROL XL PO SCH (10:23)
[2019-05-14] MEDS: ALPHAGAN P 0.1% OPHTH SOLN RIGHT EYE SCH (10:23)
[2019-05-14] MEDS: RYTHMOL PO SCH ×2 (10:23→22:32)
[2019-05-14] MEDS ORDERED: KLOR-CON PO ONE (11:57)
[2019-05-14] MEDS ORDERED: NORVASC PO ONE (15:32)
[2019-05-14] MEDS: LOVENOX SUBQ SCH (15:58)
--- NOTE | 2019-05-14 16:52 | PROGRESS NOTE ---
DATE: 05/14/2019 SUBJECTIVE: Patient has no major complaints, except she has some headache. OBJECTIVE: Blood pressure is 149/62, heart rate of 66, respiratory rate 20, temperature 98.1 degrees.Cardiovascular: Regular rate and rhythm. Pulmonary: Bilateral breath sounds. Clear to auscultation. GI: Soft, nontender, nondistended. Bowel sounds are positive. LABORATORY DATA: White count is 4, hemoglobin and hematocrit 8 and 28, platelets 302,000. Creatinine at 1.2, potassium 3.1. PROBLEM LIST: 1. Acute diastolic congestive heart failure exacerbation, likely related to tachycardia and hypertension. She seems to be doing better. Actually her heart rate is better. She is on propafenone and metoprolol, so we will continue to follow her blood pressure and we will continue diuresis. Her blood pressure is still not completely improved. She is on amlodipine, so I would just presumably go up on the amlodipine. We will give her another 2.5 and will go to 7 daily or 7.5 daily and see how she does on that. DISPOSITION: I think if she stabilizes by tomorrow, she should be able to go home. cc: Yevgeniy Alvarado MD
[2019-05-14] MEDS: ASPIRIN PO SCH (22:32)
[2019-05-14] MEDS: PRAVACHOL PO SCH (22:32)
[2019-05-15] MEDS: LASIX IV SCH (03:35)
[2019-05-15] MEDS: NORCO-5 PO PRN (03:35)
[2019-05-15 07:42] LABS: BASO# 0.03 X1000 (0.0-0.2); BASO% 0.6 % (0.0-0.8); EOS# 0.23 X1000 (0.0-0.7); EOS% 4.8 % (0.0-10.0); HEMATOCRIT 27.4 % (37.0-47.0); HEMOGLOBIN 8.3 g/dL (12.0-16.0); LYMPH# 1.17 X1000 (1.2-3.4); LYMPH% 24.5 % (20.5-51.1); MCH 25.5 PG (27-31); MCHC 30.3 g/dL (33-37); MCV 84.3 FL (81-99); MONO% 10.5 % (1.7-9.3); MPV 12.1 FL (7.4-10.4); NEUT# 2.85 X1000 (1.4-6.5); NEUT% 59.6 % (42.2-75.2); PLT 297 X1000 (130-400); RBC 3.25 XMIL (4.2-5.4); RDW 14.4 % (11.5-14.5); WBC 4.78 X1000 (4.8-10.8)
[2019-05-15 08:02] LABS: CALCIUM 8.5 mg/dL (8.8-10.2); CREATININE 1.5 mg/dL (0.5-0.9); HEMOGLOBIN A1C 4.8 % (4.8-6.0); POTASSIUM 3.9 mmol/L (3.5-5.1)
[2019-05-15] MEDS ORDERED: NORVASC PO SCH (09:00)
[2019-05-15] MEDS: RYTHMOL PO SCH ×2 (10:27→21:12)
[2019-05-15] MEDS: LEXAPRO PO SCH (10:27)
[2019-05-15] MEDS: ALPHAGAN P 0.1% OPHTH SOLN RIGHT EYE SCH (10:27)
[2019-05-15] MEDS: TOPROL XL PO SCH (10:27)
[2019-05-15] MEDS: VITAMIN D PO SCH (10:28)
[2019-05-15] MEDS ORDERED: NORVASC PO ONE (16:33)
[2019-05-15] MEDS: LOVENOX SUBQ SCH (16:57)
[2019-05-15] MEDS: ROBAXIN PO PRN (17:37)
--- NOTE | 2019-05-15 19:07 | PROGRESS NOTE ---
DATE: 05/15/2019 SUBJECTIVE: Patient has no major complaints except some back pain, lower back pain. OBJECTIVE: Vital Signs: Blood pressure is 152/59, heart rate of 58, respiratory rate 18, temperature 99 degrees, 99% on room air. Cardiovascular: Regular rate and rhythm. Pulmonary: Bilateral breath sounds clear to auscultation. Gastrointestinal: Abdomen soft, nontender, nondistended. Bowel sounds are positive. LABORATORY DATA: White count is 4, hemoglobin and hematocrit 8 and 27, platelets 297,000. Basic was normal. Creatinine is 1.5. ProBNP is 821. PROBLEM LIST: 1. Acute diastolic congestive heart failure exacerbation related to tachycardia and hypertension. The patient is on propafenone and metoprolol. She seems to be doing okay. Blood pressure is overall improved. She was still 184/64, but it is improving slowly. 2. Acute on chronic kidney issues. We will continue to monitor. I think I will probably switch her to oral Lasix now and we will go up on her Norvasc to full 10 mg and discharge her on that. DISPOSITION: I think if she is stable tomorrow, I anticipate discharge. cc: Yevgeniy Alvarado MD
[2019-05-15] MEDS: PRAVACHOL PO SCH (21:12)
[2019-05-15] MEDS: LASIX PO SCH (21:12)
[2019-05-15] MEDS: ASPIRIN PO SCH (21:12)
[2019-05-16 07:17] LABS: BASO# 0.04 X1000 (0.0-0.2); BASO% 0.8 % (0.0-0.8); EOS# 0.23 X1000 (0.0-0.7); EOS% 4.4 % (0.0-10.0); HEMATOCRIT 28.9 % (37.0-47.0); HEMOGLOBIN 8.8 g/dL (12.0-16.0); LYMPH# 1.12 X1000 (1.2-3.4); LYMPH% 21.3 % (20.5-51.1); MCH 25.4 PG (27-31); MCHC 30.4 g/dL (33-37); MCV 83.3 FL (81-99); MONO# 0.53 X1000 (0.11-0.59); MONO% 10.1 % (1.7-9.3); MPV 11.8 FL (7.4-10.4); NEUT# 3.33 X1000 (1.4-6.5); NEUT% 63.4 % (42.2-75.2); PLT 325 X1000 (130-400); RBC 3.47 XMIL (4.2-5.4); RDW 14.2 % (11.5-14.5); WBC 5.25 X1000 (4.8-10.8)
[2019-05-16 07:56] LABS: CALCIUM 8.5 mg/dL (8.8-10.2); CREATININE 1.4 mg/dL (0.5-0.9); POTASSIUM 3.3 mmol/L (3.5-5.1)
[2019-05-16] MEDS ORDERED: KLOR-CON PO ONE (10:30)
[2019-05-16] MEDS: LEXAPRO PO SCH (10:39)
[2019-05-16] MEDS: TOPROL XL PO SCH (10:39)
[2019-05-16] MEDS: RYTHMOL PO SCH ×3 (10:39→21:00)
[2019-05-16] MEDS: NORVASC PO SCH (10:39)
[2019-05-16] MEDS: VITAMIN D PO SCH (10:40)
[2019-05-16] MEDS: LASIX PO SCH ×3 (10:40→21:00)
[2019-05-16] MEDS: ALPHAGAN P 0.1% OPHTH SOLN RIGHT EYE SCH (10:40)
[2019-05-16] MEDS: LOVENOX SUBQ SCH (15:09)
[2019-05-16] MEDS ORDERED: APRESOLINE PO ONE (18:32)
[2019-05-16] MEDS: PRAVACHOL PO SCH ×2 (19:29→21:00)
[2019-05-16] MEDS: ASPIRIN PO SCH (19:30)
--- NOTE | 2019-05-16 22:22 | PROGRESS NOTE ---
DATE: 05/16/2019 SUBJECTIVE: Patient has no major complaints. OBJECTIVE: Vital signs: Blood pressure is still high 179/77, heart rate of 56, respiratory 16, temperature 98.6 degrees, saturation 100% on room air. Cardiovascular: Regular rate and rhythm. Pulmonary: Bilateral breath sounds clear to auscultation. Gastrointestinal: Soft, nontender, nondistended. Bowel sounds were positive. Extremity: No clubbing or cyanosis. Lymphatic: No peripheral edema. Neurological: Nonfocal. LABORATORY DATA: Creatinine is stable. ASSESSMENT: 1. Accelerated hypertension. We are going to rule out secondary causes of hypertension. I am going to add some hydralazine for blood pressure control. 2. Congestive heart failure. Appears to be pretty well tolerating her current medications. DISPOSITION: I think if her blood pressure is improved tomorrow, anticipate discharge tomorrow. cc: Yevgeniy Alvarado MD
[2019-05-17 06:50] LABS: BASO# 0.03 X1000 (0.0-0.2); BASO% 0.7 % (0.0-0.8); EOS# 0.16 X1000 (0.0-0.7); EOS% 3.6 % (0.0-10.0); HEMATOCRIT 28.2 % (37.0-47.0); HEMOGLOBIN 8.8 g/dL (12.0-16.0); MCHC 31.2 g/dL (33-37); MCV 83.4 FL (81-99); MONO# 0.44 X1000 (0.11-0.59); MONO% 9.8 % (1.7-9.3); MPV 11.8 FL (7.4-10.4); NEUT# 2.97 X1000 (1.4-6.5); NEUT% 65.9 % (42.2-75.2); PLT 317 X1000 (130-400); RBC 3.38 XMIL (4.2-5.4); RDW 14.1 % (11.5-14.5)
[2019-05-17 07:37] LABS: CALCIUM 8.5 mg/dL (8.8-10.2); CREATININE 1.6 mg/dL (0.5-0.9); POTASSIUM 3.7 mmol/L (3.5-5.1)
--- NOTE | 2019-05-17 08:57 | Diag Imaging Result Doc PS360 ---
EXAM: US DUPLEX RENAL ARTY/VEIN LMTD INDICATION: evaluate for renal artery stenosis TECHNIQUE: COMPARISON: None. FINDINGS: The aortic peak systolic velocity is 130 cm/s. Right: Peak systolic velocity measures 0.7 and 0.7 cm at the proximal and distal right renal arteries, respectively. The mid right renal artery is obscured. The upper and lower segmental arteries are obscured. The mid segmental artery peak systolic velocity is 34.5. The right renal artery ratio is 0.54. The resistive index is 0.8. The right kidney is grossly normal in echotexture measuring up to 10.6 cm in the greatest longitudinal axis with a 1 cm cortical thickness. Left: The peak systolic velocity measures 120 and 76 cm/s at the proximal and mid left renal artery. The distal left renal artery is obscured. The peak systolic velocity measures 120 and 45 cm/s at the upper and mid segmental arteries. The lower segmental artery is obscured. The left renal artery ratio is 0.92. The resistive index is 0.82. The left kidney is grossly normal in echotexture measuring 10.9 cm in the greatest longitudinal axis with a 1 cm cortical thickness. IMPRESSION: Elevated segmental artery resistive indices bilaterally suggesting possible renal artery stenosis. Electronically signed by Tushar Bojorquez 05/17/2019 8:55 AM
[2019-05-17] MEDS: ALPHAGAN P 0.1% OPHTH SOLN RIGHT EYE SCH (09:24)
[2019-05-17] MEDS: APRESOLINE PO SCH ×2 (09:25→14:13)
[2019-05-17] MEDS: LEXAPRO PO SCH (09:25)
[2019-05-17] MEDS: VITAMIN D PO SCH (09:25)
[2019-05-17] MEDS: LASIX PO SCH (09:25)
[2019-05-17] MEDS: RYTHMOL PO SCH (09:25)
[2019-05-17] MEDS: NORVASC PO SCH (09:25)
[2019-05-17] MEDS: TOPROL XL PO SCH (09:25)
[2019-05-17] MEDS: NORCO-5 PO PRN (09:35)
[2019-05-17] MEDS: ROBAXIN PO PRN (09:36)
[2019-05-17 16:14] VITALS: BP 150/45
--- NOTE | 2019-05-17 19:23 | DISCHARGE SUMMARY ---
ADMISSION DATE: 05/13/2019 DISCHARGE DATE: 05/17/2019 PRIMARY CARE PHYSICIAN: Dr. Stephy Brown. ADMISSION DIAGNOSIS: 1. Dyspnea. 2. Uncontrolled hypertension. 3. An acute diastolic congestive heart failure exacerbation. DISCHARGE DIAGNOSIS: 1. Accelerated hypertension. 2. A acute diastolic congestive heart failure exacerbation. SUMMARY OF FINDINGS: This is a 78-year-old female who was awakened around 3 a.m. morning of arrival with shortness of breath and chest pressure that went down into her stomach with some associated nausea. When she arrived to the emergency room she had an elevated blood pressure of 206/110, was saturating 95% on room air. Her proBNP was 1841. Chest x-ray showed pulmonary venous congestion and interstitial edema. She was admitted, diuresed. We added some hydralazine 10 mg IV q.4 hours p.r.n. for her systolic blood pressure greater than 190, diastolic greater than 100. We did do an aorta renal ultrasound that showed elevated segmental artery resistive indices bilaterally suggesting possible renal artery stenosis. Her blood pressure is now down to 150/45 and her proBNP is down to 821 so she diuresed well and it is felt that she can safely be discharged home today. DISCHARGE MEDICATIONS: Norvasc 10 mg p.o. daily, aspirin 81 mg p.o. at bedtime, Alphagan 0.1% ophthalmic solution 2 drops to the right eye q.a.m., vitamin D3 50 mcg 1 p.o. q.a.m., Lexapro 20 mg p.o. q.a.m., Lasix 40 mg p.o. daily, Robaxin 750 mg p.o. t.i.d., Toprol-XL 50 mg p.o. q.a.m., pravastatin 20 mg p.o. at bedtime, Rythmol 150 mg p.o. b.i.d., Lasix 40 mg p.o. daily, hydralazine 25 mg p.o. t.i.d., tramadol 50 mg p.o. t.i.d. p.r.n. FOLLOWUP: She will need to follow up with her primary care physician in 1 to 2 weeks. Call the office for an appointment. Dictated by AMY Rich for Yevgeniy Alvarado MD cc: MD Yevgeniy Valenzuela MD
--- NOTE | 2019-05-17 20:45 | DISCHARGE SUMMARY ---
ADMISSION DATE: 05/13/2019 DISCHARGE DATE: 05/17/2019 Patient doing well day of discharge. No major complaints. Blood pressure is improved. Her major issues are uncontrolled hypertension which is improved but she may have some renal artery stenosis. Her last blood pressure is 150/45, heart rate of 54. DISCHARGE MEDICATIONS: Amlodipine 10 that is a new medication at least adjusted up, hydralazine 25 t.i.d., Lasix 40 daily, she was already on metoprolol and she is on propafenone and I going to give her some Lasix daily 40 as well. She does have elevated resistant indices on a renal artery Doppler. We could not do a CT angiogram to rule out renal artery stenosis because she has a elevated creatinine but the report is suspicious for possible renal artery stenosis. I am going to refer her to Dr. Snider. She needs to get that better evaluated because management of contrast load in the setting of chronic renal insufficiency will need closer monitoring than just referring her to surgery but I will send her to Dr. Snider for evaluation. cc: MD Dr. Stephanie Titus
== END 2019-05-17 18:01 | disposition home or self-care (01) ==
LOC: SUPCPDRO → 3N 06:40 → ED 06:40
PROVIDERS: ATTEND Internal Medicine